=== PATIENT | male | born 1955 | race Caucasian/White ===

== ENCOUNTER 2019-09-22 17:58 | Emergency (ER) | payer BC ==
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
--- NOTE | 2019-09-22 19:34 | RAD REPORT ---
EXAM DESCRIPTION: US - Extremity Venous Uni Ltd - 09/22/2019 7:28 pm CLINICAL HISTORY: SWELLING Leg swelling and edema. COMPARISON: No comparisons FINDINGS: Right lower extremity venous system was interrogated with Doppler technique. Normal flow, compressibility and augmentation was noted. There is no DVT present. IMPRESSION: No evidence of right lower extremity deep venous thrombosis.
--- NOTE | 2019-09-22 19:51 | ER ---
Nurse's Notes [facility] Name: Greg Scott Age: 64 yrs Sex: Male : 1955 Arrival Date: 09/22/2019 Time: 18:01 Bed 14 Private MD: Jessica Diaz Diagnosis: Right Lower Extremity Edema Presentation: 09/21 18:12 Chief complaint: Patient states: Swelling on R knee, up to R inner thigh. Noticed ca1 today. Denies pain. Coronavirus screen: Patient denies a cough. Patient denies shortness of breath or difficulty breathing. Patient denies measured and/or subjective temperature greater than 100.4F prior to today's visit. Patient denies travel on a cruise ship or to a country the [facility] currently lists as an affected area. Patient denies contact with known and/or suspected case of COVID-19. Proceed with normal triage. Ebola Screen: Patient negative for fever greater than or equal to 101.5 degrees Fahrenheit, and additional compatible Ebola Virus Disease symptoms Patient denies exposure to infectious person. Patient denies travel to an Ebola-affected area in the 21 days before illness onset. No symptoms or risks identified at this time. Initial Sepsis Screen: Does the patient meet any 2 criteria? No. Patient's initial sepsis screen is negative. Does the patient have a suspected source of infection? No. Patient's initial sepsis screen is negative. Risk Assessment: Do you want to hurt yourself or someone else? Patient reports no desire to harm self or others. Onset of symptoms was September 22, 2019. 18:12 Method Of Arrival: Ambulatory ca1 18:12 Acuity: MIGDALIA 4 ca1 Triage Assessment: 18:24 General: Appears in no apparent distress. well groomed, Behavior is calm, cooperative, ks7 appropriate for age. Pain: Complains of pain in right knee Pain currently is 5 out of 10 on a pain scale. Quality of pain is described as aching, dull, Pain began 1 day ago. Historical: - Allergies: 18:14 Sulfa (Sulfonamide Antibiotics); ca1 - PMHx: 18:14 Hypertension; CAD; Synovial Cyst on L5; ca1 - PSHx: 18:14 None; ca1 - Immunization history:: Adult Immunizations up to date. - Social history:: Smoking status: Patient denies any tobacco usage or history of. Screenin:26 Abuse screen: Denies threats or abuse. Denies injuries from another. Nutritional ks7 screening: No deficits noted. Tuberculosis screening: No symptoms or risk factors identified. Fall Risk No fall in past 12 months (0 pts). Secondary diagnosis (15 points) No IV (0 pts). Ambulatory Aid- Crutches/Cane/Walker (15 pts). Gait- Weak (10 pts.). Mental Status- Oriented to own ability (0 pts). Total Ingram Fall Scale indicates Low Risk Score (25-44 pts). Side Rails Up X 2 Placed close to Nursing Station As available Patient and Family Educated on Fall Prevention Program and strategies. 18:26 Fall Risk. ks7 Assessment: 18:26 General: pt c/o swelling to R knee. pt states he was standing for an hour on Saturday and ks7 may have tweaked his knee. 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 also states his R foot keeps externally rotating when he tries to take a step with R leg. 18:26 Musculoskeletal: Swelling present in right leg. ks7 19:25 Reassessment: Patient is alert, oriented x 3, equal unlabored respirations, skin ks7 warm/dry/pink. Vital Signs: 18:12 BP 175 / 77; Pulse 86; Resp 15 S; Temp 97.8(TE); Pulse Ox 98% on R/A; Weight 74.84 kg ca1 (R); Height 5 ft. 9 in. (175.26 cm) (R); 18:25 BP 175 / 77; Pulse 81; Resp 16; Pulse Ox 100% on R/A; Pain 5/10; ks7 19:24 BP 149 / 72; Pulse 80; Resp 18; Temp 97.9(TE); Pulse Ox 100% on R/A; Pain 0/10; ks7 20:10 BP 140 / 73; Pulse 89; Resp 18; Temp 98(TE); Pulse Ox 100% ; Pain 0/10; ks7 18:12 Body Mass Index 24.37 (74.84 kg, 175.26 cm) ca1 ED Course: 18:01 Patient arrived in ED. mr 18:02 Jessica Diaz MD is Private Physician. mr 18:13 Triage completed. ca1 18:14 Arm band placed on right wrist. ca1 18:18 Pola Aguilar PA is PHCP. [facility] 18:18 Jimy Strauss MD is Attending Physician. [facility] 18:20 Cary Griffith, GLORIA is Primary Nurse. ks7 18:26 Patient has correct armband on for positive identification. Bed in low position. Call ks7 light in reach. Side rails up X2. 18:26 No provider procedures requiring assistance completed. Patient did not have IV access ks7 during this emergency room visit. 19:22 Patient taken to ultrasound. US at bedside. ks7 19:22 US Extremity Venous Unilateral Ltd Sent. ks7 19:25 No apparent distress. pt ambulated to bathroom and back independently, using his ks7 crutches. 19:28 US Extremity Venous Unilateral Ltd In Process Unspecified. EDMS 19:50 Jessica Diaz MD is Referral Physician. [facility] Administered Medications: No medications were administered Outcome: 19:51 Discharge ordered by MD. jmm 20:14 Discharged to home ambulatory, with crutches. ks7 20:14 Condition: good 20:14 Discharge instructions given to patient, Instructed on discharge instructions. 20:15 Patient left the ED. ks7 Signatures: Dispatcher [employer] EDMS Pola Aguilar PA PA [facility] Mihaela Babcock mr HarrisonLynda melgar RN RN ca1 Cary Griffith, GLORIA RN ks7 Corrections: (The following items were deleted from the chart) 18:13 18:12 Acuity: MIGDALIA 3 ca1 ca1 18:30 18:26 Fall Risk No fall in past 12 months (0 pts). Secondary diagnosis (15 points) No ks7 IV (0 pts). Ambulatory Aid- Crutches/Cane/Walker (15 pts). Gait- Weak (10 pts.). Mental Status- Oriented to own ability (0 pts). Total Ingram Fall Scale indicates Low Risk Score (25-44 pts). ks7
--- NOTE | 2019-09-22 19:52 | EDPHYS ---
Physician Documentation [facility] Name: Greg Scott Age: 64 yrs Sex: Male : 1955 Arrival Date: 09/22/2019 Time: 18:01 Bed 14 Private MD: Jessica Diaz ED Physician Jimy Strauss HPI: 09/21 19:47 This 64 yrs old Male presents to ER via Ambulatory with complaints of Leg jmm Swelling. 19:47 The patient presents with swelling. The complaints affect the right quadriceps. Onset: jmm The symptoms/episode began/occurred gradually, 1 day(s) ago. Modifying factors: The symptoms are alleviated by nothing. the symptoms are aggravated by nothing. Associated signs and symptoms: Pertinent negatives fever. This is a 64 year old male with a history of htn, CAD, that presents to the ED with complaints of right thigh swelling beginning approx 1 day ago extending to the superior end of his knee. Denies fever, denies chest pain, denies shortness of breath. . Historical: - Allergies: 18:14 Sulfa (Sulfonamide Antibiotics); ca1 - PMHx: 18:14 Hypertension; CAD; Synovial Cyst on L5; ca1 - PSHx: 18:14 None; ca1 - Immunization history:: Adult Immunizations up to date. - Social history:: Smoking status: Patient denies any tobacco usage or history of. ROS: 19:47 Constitutional: Negative for fever, chills, and weight loss, Cardiovascular: Negative jmm for chest pain, palpitations, and edema, Respiratory: Negative for shortness of breath, cough, wheezing, and pleuritic chest pain, Abdomen/GI: Negative for abdominal pain, nausea, vomiting, diarrhea, and constipation. 19:47 MS/extremity: Positive for swelling. 19:47 All other systems are negative. Exam: 19:47 Constitutional: This is a well developed, well nourished patient who is awake, alert, jmm and in no acute distress. Head/Face: atraumatic. Eyes: EOMI, no conjunctival erythema appreciated ENT: Moist Mucus Membranes Neck: Trachea midline, Supple Chest/axilla: Normal chest wall appearance and motion. Cardiovascular: Regular rate and rhythm. No edema appreciated Respiratory: Normal respirations, no respiratory distress appreciated Abdomen/GI: Non distended, soft Back: Normal ROM Skin: General appearance color normal 19:47 Musculoskeletal/extremity: swelling noted to the right thigh, non tender to palpation, no erythema, compartments are soft, FROM appreciated to the right knee, no pain. 19:47 Skin: Appearance: Color: normal in color. 19:47 Neuro: Orientation: is normal, Mentation: is normal, Memory: is normal. 19:47 Psych: Behavior/mood is pleasant, cooperative. Vital Signs: 18:12 BP 175 / 77; Pulse 86; Resp 15 S; Temp 97.8(TE); Pulse Ox 98% on R/A; Weight 74.84 kg ca1 (R); Height 5 ft. 9 in. (175.26 cm) (R); 18:25 BP 175 / 77; Pulse 81; Resp 16; Pulse Ox 100% on R/A; Pain 5/10; ks7 19:24 BP 149 / 72; Pulse 80; Resp 18; Temp 97.9(TE); Pulse Ox 100% on R/A; Pain 0/10; ks7 20:10 BP 140 / 73; Pulse 89; Resp 18; Temp 98(TE); Pulse Ox 100% ; Pain 0/10; ks7 18:12 Body Mass Index 24.37 (74.84 kg, 175.26 cm) ca1 MDM: 18:32 Patient medically screened. jessica 19:49 Data reviewed: vital signs, nurses notes. Counseling: I had a detailed discussion with jessica the patient and/or guardian regarding: the historical points, exam findings, and any diagnostic results supporting the discharge/admit diagnosis, radiology results, the need for outpatient follow up, to return to the emergency department if symptoms worsen or persist or if there are any questions or concerns that arise at home. ED course: Patient is alert and non toxic in appearance in the ED. No signs of resp distress. US is negative. Patient advised to return to the ED if symptoms worsen. Patient understood and agrees with the plan of care. . 09/21 18:35 Order name: US Extremity Venous Unilateral Ltd; Complete Time: 19:42 jessica Administered Medications: No medications were administered Disposition: 09/22 08:31 Co-signature as Attending Physician, Jimy Strauss MD. rn Disposition: 09/22/19 19:51 Discharged to Home. Impression: Right Lower Extremity Edema. - Condition is Stable. - Discharge Instructions: Peripheral Edema. - Medication Reconciliation Form, Thank You Letter, Antibiotic Education, Prescription Opioid Use form. - Follow up: Jessica Diaz MD; When: 2 - 3 days; Reason: Recheck today's complaints, Continuance of care, Re-evaluation by your physician. Signatures: Dispatcher [employer] EDMS Pola Aguilar PA PA jmm Nieto, Roman, MD MD rn Acob, Lynda RN RN ca1 Cary Griffith RN RN ks7 Corrections: (The following items were deleted from the chart) 09/21 20:15 19:51 09/22/2019 19:51 Discharged to Home. Impression: Right Lower Extremity Edema. ks7 Condition is Stable. Forms are Medication Reconciliation Form, Thank You Letter, Antibiotic Education, Prescription Opioid Use. Follow up: Jessica Diaz; When: 2 - 3 days; Reason: Recheck today's complaints, Continuance of care, Re-evaluation by your physician. jessica
[2019-09-23 11:38] VITALS: O2SAT 100
[2019-09-23 11:41] VITALS: BP 140/73; TEMP 98
== END 2019-09-22 20:15 | disposition home or self-care (01) ==
LOC: ER 17:58
DX: R60.0 Localized edema (principal); I10 Essential (primary) hypertension; Z88.2 Allergy status to sulfonamides
CPT/HCPCS: 93971; 99284

== ENCOUNTER 2020-04-10 21:37 | Observation (INO) | payer BC ==
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
[2020-04-10] MEDS ORDERED: NA CHLORIDE 0.9% 1,000 ML ONE (22:39)
[2020-04-10] MEDS ORDERED: PROMETHAZINE INJ 25 MG/ML AMP ONE (22:56)
[2020-04-10 23:09] LABS: Absolute Lymphocytes (CBC) 1.8 K/uL (0.7-4.9); Basophils % 0.3 % (0-1.3); Hematocrit 34.4 % (39.6-49.0); Lymphocytes % 13.9 % (15.3-44.8); MPV 7.9 fL (7.6-11.3); RBC Red Blood Cell Count 3.81 M/uL (4.33-5.43)
[2020-04-10 23:10] LABS: Protime INR 0.95
[2020-04-10 23:26] LABS: ALT/SGPT 21 U/L (12-78); AST/SGOT 15 U/L (15-37); Albumin 3.6 g/dL (3.4-5.0); Alkaline Phosphatase 81 U/L (45-117); BUN Blood Urea Nitrogen 22 mg/dL (7-18); Bicarbonate 25 mmol/L (21-32); Bilirubin Direct < 0.1 mg/dL (0-0.2); Bilirubin Total 0.2 mg/dL (0.2-1.0); Glucose Level 108 mg/dL (74-106); NT PRO-BNP 47 pg/mL (<125); Potassium 3.8 mmol/L (3.5-5.1); Sodium Level 143 mmol/L (136-145); Troponin (Emerg Dept Use Only) < 0.02 ng/mL (0.0-0.045)
[2020-04-11] MEDS ORDERED: MECLIZINE HCL 12.5 MG TAB ONE (00:41)
[2020-04-11] MEDS ORDERED: DIAZEPAM 10 MG/2 ML INJ SYRINGE ONE ×2 (02:40→03:53)
[2020-04-11 03:30] LABS: Urine Blood NEGATIVE (NEG); Urine Glucose NEGATIVE (NEG); Urine Protein NEGATIVE (NEG); Urine Specific Gravity 1.025 (1.005-1.030); Urine pH 6.5 (5.0-7.0)
--- NOTE | 2020-04-11 04:48 | EDPHYS ---
Physician Documentation [facility] Name: Greg Scott Age: 65 yrs Sex: Male : 1955 Arrival Date: 04/10/2020 Time: 21:52 Bed 14 Private MD: ED Physician Boby Rosenbaum HPI: 04/10 22:20 This 65 yrs old Male presents to ER via Unassigned with complaints of mh7 Dizziness.. 22:21 The patient presents with dizziness, sense of spinning. Onset: The symptoms/episode mh7 began/occurred today, at 19:30. Context: occurred at home, occurred while the patient was sitting, just prior to the episode the patient experienced no apparent symptoms. Modifying factors: The symptoms are alleviated by holding head still, the symptoms are aggravated by movement of head, standing up, changing position. Associated signs and symptoms: Pertinent positives: nausea, vomiting, Pertinent negatives: abdominal pain, agitation, ataxia, blurred vision, chest pain, combativeness, confusion, diaphoresis, focal weakness, head injury, headache, near-syncope, numbness, palpitations, , seizure, shortness of breath, syncope, tingling. Associated signs and symptoms: Pertinent positives: Ringing in left ear. Severity of symptoms: At their worst the symptoms were moderate today, in the emergency department the symptoms are unchanged. Historical: - Allergies: 23:42 Sulfa (Sulfonamide Antibiotics); ll2 - PMHx: 23:42 CAD; Synovial Cyst on L5; Hypertension; ll2 - Immunization history:: Adult Immunizations up to date. - Social history:: Smoking status: unknown. ROS: 22:21 Constitutional: Negative for fever, chills, and weight loss, Eyes: Negative for injury, mh7 pain, redness, and discharge, Neck: Negative for injury, pain, and swelling, Cardiovascular: Negative for chest pain, palpitations, and edema, Respiratory: Negative for shortness of breath, cough, wheezing, and pleuritic chest pain, Back: Negative for injury and pain, : Negative for injury, bleeding, discharge, and swelling, MS/Extremity: Negative for injury and deformity, Skin: Negative for injury, rash, and discoloration, Neuro: Negative for headache, weakness, numbness, tingling, and seizure, Psych: Negative for depression, anxiety, suicide ideation, homicidal ideation, and hallucinations, Allergy/Immunology: Negative for hives, rash, and allergies, Endocrine: Negative for neck swelling, polydipsia, polyuria, polyphagia, and marked weight changes, Hematologic/Lymphatic: Negative for swollen nodes, abnormal bleeding, and unusual bruising. Exam: 22:40 Constitutional: This is a well developed, well nourished patient who is awake, alert, mh7 and in no acute distress. Head/Face: Normocephalic, atraumatic. Eyes: Pupils equal round and reactive to light, extra-ocular motions intact. Lids and lashes normal. Conjunctiva and sclera are non-icteric and not injected. Cornea within normal limits. Periorbital areas with no swelling, redness, or edema. ENT: Nares patent. No nasal discharge, no septal abnormalities noted. Tympanic membranes are normal and external auditory canals are clear. Oropharynx with no redness, swelling, or masses, exudates, or evidence of obstruction, uvula midline. Mucous membranes moist. Neck: Trachea midline, no thyromegaly or masses palpated, and no cervical lymphadenopathy. Supple, full range of motion without nuchal rigidity, or vertebral point tenderness. No Meningismus. Chest/axilla: Normal chest wall appearance and motion. Nontender with no deformity. No lesions are appreciated. Cardiovascular: Regular rate and rhythm with a normal S1 and S2. No gallops, murmurs, or rubs. Normal PMI, no JVD. No pulse deficits. Respiratory: Lungs have equal breath sounds bilaterally, clear to auscultation and percussion. No rales, rhonchi or wheezes noted. No increased work of breathing, no retractions or nasal flaring. Abdomen/GI: Soft, non-tender, with normal bowel sounds. No distension or tympany. No guarding or rebound. No evidence of tenderness throughout. Back: No spinal tenderness. No costovertebral tenderness. Full range of motion. Skin: Warm, dry with normal turgor. Normal color with no rashes, no lesions, and no evidence of cellulitis. MS/ Extremity: Pulses equal, no cyanosis. Neurovascular intact. Full, normal range of motion. Neuro: Awake and alert, GCS 15, oriented to person, place, time, and situation. Cranial nerves II-XII grossly intact. Motor strength 5/5 in all extremities. Sensory grossly intact. Cerebellar exam normal. Normal gait. Psych: Awake, alert, with orientation to person, place and time. Behavior, mood, and affect are within normal limits. Vital Signs: 04/11 00:15 BP 140 / 71; Pulse 62; Resp 17; Pulse Ox 95% ; ds4 01:15 BP 138 / 68; Pulse 58; Resp 16; Pulse Ox 95% on R/A; ll2 02:15 BP 133 / 72; Pulse 61; Resp 15; Pulse Ox 95% on R/A; ll2 03:15 BP 151 / 77; Pulse 69; Resp 16; Pulse Ox 99% on R/A; ll2 04:15 BP 148 / 83; Pulse 60; Resp 18; Pulse Ox 93% on R/A; ll2 04:24 BP 148 / 83 Supine; Pulse 62; ll2 04:24 BP 161 / 84 Sitting; Pulse 57; ll2 MDM: 04:45 Differential diagnosis: cardiac arrhythmia, CVA, generalized weakness, hypovolemia, 7 idiopathic dizziness, near-syncope, syncope, vertigo. Data reviewed: vital signs, nurses notes, lab test result(s), cardiac enzymes, CBC, electrolytes, urinalysis, EKG, radiologic studies, CT scan, plain films. Data interpreted: Pulse oximetry: on room air is 95 %. Interpretation: normal. Counseling: I had a detailed discussion with the patient and/or guardian regarding: the historical points, exam findings, and any diagnostic results supporting the discharge/admit diagnosis, the presence of at least one elevated blood pressure reading (>120/80) during this emergency department visit, lab results, radiology results, the need for further work-up and treatment in the hospital. Response to treatment: the patient's symptoms have mildly improved after treatment. 04:48 Patient medically screened. [facility] 04/10 22:20 Order name: Basic Metabolic Panel [facility] 04/10 22:20 Order name: CBC with Diff [facility] 04/10 22:20 Order name: LFT's [facility] 04/10 22:20 Order name: Magnesium; Complete Time: 00:10 [facility] 04/10 22:20 Order name: NT PRO-BNP; Complete Time: 00:10 [facility] 04/10 22:20 Order name: PT-INR; Complete Time: 00:10 [facility] 04/10 22:20 Order name: Troponin (emerg Dept Use Only); Complete Time: 00:10 [facility] 04/10 22:20 Order name: XRAY Chest (1 view) [facility] 04/10 22:20 Order name: Basic Metabolic Panel; Complete Time: 00:10 [facility] 04/10 22:20 Order name: CBC with Automated Diff; Complete Time: 00:10 [facility] 04/10 22:20 Order name: Liver (Hepatic) Function; Complete Time: 00:10 [facility] 04/11 01:15 Order name: Urine Dipstick--Ancillary (enter results); Complete Time: 04:12 3 04/11 05:12 Order name: COVID-19 : Document "Date of Symptom Onset" if Symptomatic. mg2 04/11 06:47 Order name: SARS-COV-2 RT PCR [facility] 04/10 22:20 Order name: EKG; Complete Time: 22:21 [facility] 04/10 22:20 Order name: Cardiac monitoring; Complete Time: 00:56 [facility] 04/10 22:20 Order name: EKG - Nurse/Tech; Complete Time: 00:56 [facility] 04/10 22:20 Order name: IV Saline Lock; Complete Time: 00:56 [facility] 04/10 22:20 Order name: Labs collected and sent; Complete Time: 00:56 [facility] 04/10 22:20 Order name: O2 Per Protocol; Complete Time: 00:56 [facility] 04/10 22:20 Order name: O2 Sat Monitoring; Complete Time: 00:56 [facility] 04/10 22:20 Order name: CT Head Brain wo Cont [facility] 04/11 12:42 Order name: MRI [facility] 04/11 12:44 Order name: MRI [facility] 04/10 22:20 Order name: Urine Dipstick-Ancillary (obtain specimen); Complete Time: 00:47 [facility] Administered Medications: 04/10 22:25 Drug: NS 0.9% 1000 ml Route: IV; Rate: 1000 ml; Site: left antecubital; 2 23:58 Follow up: Response: No adverse reaction; IV Status: Completed infusion; IV Intake: ll2 1000ml 22:55 Drug: Phenergan 12.5 mg Route: IVP; Site: left antecubital; 2 23:55 Follow up: Response: No adverse reaction [facility] 04/11 00:29 Drug: Meclizine 25 mg Route: PO; ll2 01:29 Follow up: Response: No adverse reaction ll2 02:38 Drug: Valium 2.5 mg Route: IVP; Site: left antecubital; ll2 03:38 Follow up: Response: No adverse reaction ll2 03:47 Drug: Valium 2.5 mg Route: IVP; Site: left antecubital; ll2 04:25 Follow up: Response: No adverse reaction ll2 05:36 Drug: predniSONE 60 mg Route: PO; ll2 Disposition: 04/11/20 04:48 Hospitalization ordered by Abdon Strauss for Observation. Preliminary diagnosis is Vertigo. - Bed requested for Telemetry/MedSurg (observation). - Status is Observation. ll1 - Condition is Stable. - Problem is new. - Symptoms have improved. Signatures: Dispatcher [employer] EDMS Manolo Kelly, SECURITY RISK ANALYST-C SECURITY RISK ANALYST-Cla1 Elza Rocha RN RN Ramsey Owens RN RN [email or web address] Melonie Mitchell RN RN ll2 Jason Albarado RN RN 1 Boby Rosenbaum MD MD 7 Corrections: (The following items were deleted from the chart) 05:56 04:48 Hospitalization Ordered by Abdon Strauss MD for Observation. Preliminary cg diagnosis is Vertigo. Bed requested for Telemetry/MedSurg (observation). Status is Observation. Condition is Stable. Problem is new. Symptoms have improved. [facility] 16:03 05:56 04/11/2020 04:48 Hospitalization Ordered by Abdon Strauss MD for Observation. ja1 Preliminary diagnosis is Vertigo. Bed requested for [facility] ER HOLD. Status is Observation. Condition is Stable. Problem is new. Symptoms have improved. cg 16:36 16:03 04/11/2020 04:48 Hospitalization Ordered by Abdon Strauss MD for Observation. ll1 Preliminary diagnosis is Vertigo. Bed requested for Telemetry/MedSurg (observation). Status is Observation. Condition is Stable. Problem is new. Symptoms have improved. ja1
--- NOTE | 2020-04-11 04:48 | ER ---
Nurse's Notes [facility] Name: Greg Scott Age: 65 yrs Sex: Male : 1955 Arrival Date: 04/10/2020 Time: 21:52 Bed 14 Private MD: Diagnosis: Vertigo Presentation: 04/10 21:55 Acuity: MIGDALIA 3 ll2 21:55 Chief complaint:. ll2 04/11 04:26 Coronavirus screen: Client denies travel out of the [place] in the last 14 days. Ebola ll2 Screen: Patient negative for fever greater than or equal to 101.5 degrees Fahrenheit, and additional compatible Ebola Virus Disease symptoms. Initial Sepsis Screen: Does the patient meet any 2 criteria? No. Patient's initial sepsis screen is negative. Does the patient have a suspected source of infection? No. Patient's initial sepsis screen is negative. Risk Assessment: Do you want to hurt yourself or someone else? Patient reports no desire to harm self or others. Onset of symptoms. 04:26 Method Of Arrival: Ambulatory ll2 Triage Assessment: 04:26 General: Appears in no apparent distress. Behavior is calm, cooperative, appropriate ll2 for age. Pain: Denies pain. Historical: - Allergies: 04/10 23:42 Sulfa (Sulfonamide Antibiotics); ll2 - PMHx: 23:42 CAD; Synovial Cyst on L5; Hypertension; ll2 - Immunization history:: Adult Immunizations up to date. - Social history:: Smoking status: unknown. Screenin:00 Abuse screen: Denies threats or abuse. Nutritional screening: No deficits noted. ll2 Tuberculosis screening: No symptoms or risk factors identified. Fall Risk No fall in past 12 months (0 pts). IV access (20 points). Ambulatory Aid- None/Bed Rest/Nurse Assist (0 pts). Gait- Normal/Bed Rest/Wheelchair (0 pts) Mental Status- Oriented to own ability (0 pts). Total Ingram Fall Scale indicates No Risk (0-24 pts). Assessment: 21:55 General: Appears in no apparent distress. Behavior is calm, cooperative, appropriate ll2 for age. Pain: Denies pain. Neuro: Level of Consciousness is awake, alert, obeys commands, Oriented to person, place, time, situation. Cardiovascular: Patient's skin is warm and dry. Respiratory: Airway is patent Respiratory effort is even, unlabored, Respiratory pattern is regular, symmetrical. GI: No signs and/or symptoms were reported involving the gastrointestinal system. : No signs and/or symptoms were reported regarding the genitourinary system. EENT: No signs and/or symptoms were reported regarding the EENT system. Derm: No signs and/or symptoms reported regarding the dermatologic system. Musculoskeletal: Circulation, motion, and sensation intact. Range of motion: intact in all extremities. 22:55 Reassessment: Patient and/or family updated on plan of care and expected duration. Pain ll2 level reassessed. Patient is alert, oriented x 3, equal unlabored respirations, skin warm/dry/pink. 23:55 Reassessment: Patient and/or family updated on plan of care and expected duration. Pain ll2 level reassessed. Patient is alert, oriented x 3, equal unlabored respirations, skin warm/dry/pink. 04/11 00:55 Reassessment: Patient and/or family updated on plan of care and expected duration. Pain ll2 level reassessed. Patient is alert, oriented x 3, equal unlabored respirations, skin warm/dry/pink. 01:55 Reassessment: No changes from previously documented assessment. Patient and/or family ll2 updated on plan of care and expected duration. Pain level reassessed. Patient is alert, oriented x 3, equal unlabored respirations, skin warm/dry/pink. 02:55 Reassessment: Patient and/or family updated on plan of care and expected duration. Pain ll2 level reassessed. Patient is alert, oriented x 3, equal unlabored respirations, skin warm/dry/pink. 03:55 Reassessment: No changes from previously documented assessment. Patient and/or family ll2 updated on plan of care and expected duration. Pain level reassessed. Patient is alert, oriented x 3, equal unlabored respirations, skin warm/dry/pink. 04:28 Pain: Pain does not radiate. Pain began suddenly. ll2 Vital Signs: 00:15 BP 140 / 71; Pulse 62; Resp 17; Pulse Ox 95% ; ds4 01:15 BP 138 / 68; Pulse 58; Resp 16; Pulse Ox 95% on R/A; ll2 02:15 BP 133 / 72; Pulse 61; Resp 15; Pulse Ox 95% on R/A; ll2 03:15 BP 151 / 77; Pulse 69; Resp 16; Pulse Ox 99% on R/A; ll2 04:15 BP 148 / 83; Pulse 60; Resp 18; Pulse Ox 93% on R/A; ll2 04:24 BP 148 / 83 Supine; Pulse 62; ll2 04:24 BP 161 / 84 Sitting; Pulse 57; ll2 ED Course: 04/10 21:52 Patient arrived in ED. lp1 21:54 Boby Rosenbaum MD is Attending Physician. 7 22:00 No provider procedures requiring assistance completed. ll2 22:00 Patient has correct armband on for positive identification. color television console monitor on. Pulse ll2 ox on. NIBP on. 22:32 Melonie Mitchell RN is Primary Nurse. ll2 22:58 XRAY Chest (1 view) In Process Unspecified. EDMS 23:28 CT Head Brain wo Cont In Process Unspecified. EDMS 23:33 Triage completed. 2 04/11 02:51 CBC with Diff Sent. ll2 02:51 LFT's Sent. ll2 02:51 Basic Metabolic Panel Sent. ll2 04:26 Arm band placed on right wrist. ll2 04:28 Patient maintains SpO2 saturation greater than 95% on room air. 2 04:47 Abdon Strauss MD is Hospitalizing Provider. [facility] 05:32 COVID-19 : Document "Date of Symptom Onset" if Symptomatic. Sent. ll2 Administered Medications: 04/10 22:25 Drug: NS 0.9% 1000 ml Route: IV; Rate: 1000 ml; Site: left antecubital; 2 23:58 Follow up: Response: No adverse reaction; IV Status: Completed infusion; IV Intake: ll2 1000ml 22:55 Drug: Phenergan 12.5 mg Route: IVP; Site: left antecubital; 2 23:55 Follow up: Response: No adverse reaction 2 04/11 00:29 Drug: Meclizine 25 mg Route: PO; ll2 01:29 Follow up: Response: No adverse reaction ll2 02:38 Drug: Valium 2.5 mg Route: IVP; Site: left antecubital; 2 03:38 Follow up: Response: No adverse reaction 2 03:47 Drug: Valium 2.5 mg Route: IVP; Site: left antecubital; 2 04:25 Follow up: Response: No adverse reaction 2 05:36 Drug: predniSONE 60 mg Route: PO; 2 Intake: 04/10 23:58 IV: 1000ml; Total: 1000ml. 2 Outcome: 04/11 04:48 Decision to Hospitalize by Provider. [facility] 16:36 Patient left the ED. [facility] Signatures: Dispatcher [employer] EDMS Luna Thapa RN RN lp1 Eleazar Huerta ds4 Melonie Mitchell RN RN ll2 Jason Albarado RN RN ll1 Boby Rosenbaum MD MD 7
--- NOTE | 2020-04-11 05:30 | P.HP ---
Certification for Inpatient Patient admitted to: Observation With expected LOS: <2 Midnights Patient will require the following post-hospital care: None Practitioner: I am a practitioner with admitting privileges, knowledge of patient current condition, hospital course, and medical plan of care. Services: Services provided to patient in accordance with Admission requirements found in Title 42 Section 412.3 of the Code of Federal Regulations <Manolo Kelly - Last Filed: 04/11/20 05:26> Patient History Date of Service: 04/11/20 Primary Care Provider: Dr. Diaz Reason for admission: Dizziness, vomiting History of Present Illness: 65-year-old male with history of hypertension presents emergency department for dizziness. Patient reports that beginning in the afternoon yesterday he began having some episodic dizziness related to position change. Patient reports vertigo symptoms. Patient was given meclizine, Valium in the emergency department with only mild symptom relief. CT head negative for any acute findings lab significant for white blood cell count 13 hemoglobin 11.4 hematocrit 34.4. After a more detailed discussion with patient he also revealed that he has had new left-sided hearing loss and sensation of fullness to the left ear as well. Patient left beating nystagmus, dizziness made worse by turning head to the left. Patient with surgery approximately 6-7 months ago with the neurosurgeon to remove a cyst from his spine, since then he has used crutches for walking. Patient still with significant dizziness, vomiting with any position change, ED provider wishes to admit under observation for further evaluation and management, patient also does not feel comfortable going home given high risk for falls and still feeling very well. Patient without any other focal neurological deficits. Appears stable at this time. - Past Medical/Surgical History Diabetic: No -: Hypertension -: Spinal cyst removal Psychosocial/ Personal History: Patient currently employed, has a desk job, lives with his . - Family History Family History: Reviewed- Non-Contributory - Social History Alcohol use: No CD- Drugs: No Caffeine use: Yes <Manolo Kelly - Last Filed: 04/11/20 05:26> Date of Service: 04/11/20 <Abdon Strauss - Last Filed: 04/11/20 18:54> Review of Systems General: As per HPI Gastrointestinal: Vomiting Neurological: Other (Dizziness) <Manolo Kelly - Last Filed: 04/11/20 05:26> Physical Examination - Physical Exam General: Alert, In no apparent distress HEENT: Atraumatic, PERRLA, Mucous membr. moist/pink, Other (Patient with left beating nystagmus), Sclerae nonicteric Neck: Supple, 2+ carotid pulse no bruit, No LAD, Without JVD or thyroid abnormality Respiratory: Clear to auscultation bilaterally, Normal air movement Cardiovascular: Regular rate/rhythm, Normal S1 S2 Gastrointestinal: Normal bowel sounds, No tenderness Musculoskeletal: No tenderness Integumentary: No rashes Neurological: Normal speech, Normal strength at 5/5 x4 extr (Patient unable to fully cooperate with muscle strength testing of right lower extremity due to spinal surgery and pain.), Normal tone, Sensation intact, Normal affect, Other (Left beating nystagmus, vertigo with repositioning of head facing left.) Lymphatics: No axilla or inguinal lymphadenopathy - Studies Laboratory Data (last 24 hrs) 04/10/20 22:50: PT 10.9, INR 0.95 04/10/20 22:50: WBC 13.00 H, Hgb 11.4 L, Hct 34.4 L, Plt Count 243 04/10/20 22:50: Sodium 143, Potassium 3.8, BUN 22 H, Creatinine 1.01, Glucose 1 08 H, Magnesium 2.0, Total Bilirubin 0.2, AST 15, ALT 21, Alkaline Phosphatase 81 <Manolo Kelly - Last Filed: 04/11/20 05:26> - Studies Laboratory Data (last 24 hrs) 04/10/20 22:50: PT 10.9, INR 0.95 04/10/20 22:50: WBC 13.00 H, Hgb 11.4 L, Hct 34.4 L, Plt Count 243 04/10/20 22:50: Sodium 143, Potassium 3.8, BUN 22 H, Creatinine 1.01, Glucose 108 H, Magnesium 2.0, Total Bilirubin 0.2, AST 15, ALT 21, Alkaline Phosphatase 81 <Abdon Strauss - Last Filed: 04/11/20 18:54> Assessment and Plan - Plan Assessment Dizziness, vomiting Hypertension Plan Dizziness, vomiting: Patient with symptoms reproducible with repositioning of the head facing left, left beating nystagmus, sensation of fullness in the left year in addition to new onset of hearing loss in the past 24 hr on the left year. Suspect Meniere's disease. Patient given benzodiazepines and meclizine in the emergency department with minor relief. Patient uses crutches at home due to recent spinal surgery approximately 6-7 months ago. Will need to have patient evaluated by physical therapy and in control of dizziness/vertigo so that he may be safe for discharge. DVT prophylaxis Lovenox 40 mg subcutaneous once daily. Hypertension: Continue home meds. Discharge Plan: Home Plan to discharge in: 24 Hours - Advance Directives Does patient have a Living Will: No Does patient have a Durable POA for Healthcare: No - Code Status/Comfort Care Code Status Assessed: Yes (Full code) Critical Care: No Time Spent Managing Pts Care (In Minutes): 55 <Manolo Kelly - Last Filed: 04/11/20 05:26> - Plan Plan of care discussed with Manolo Kelly, and I agree with the management plan as noted above. Bilateral tympanic membranes appeared clear/normal, no evidence of infection Will obtain MRI to rule out brain stem stroke Patient is quite symptomatic, will consult PT as well anticipate dc in next 24 hrs <Abdon Strauss - Last Filed: 04/11/20 18:54>
[2020-04-11] MEDS ORDERED: predniSONE 20 MG TAB ONE ×2 (05:49→08:34)
[2020-04-11] MEDS ORDERED: clonazePAM 0.5 MG TAB PO PRN (06:13)
[2020-04-11] MEDS ORDERED: ACETAMINOPHEN 500 MG TAB PO PRN (06:13)
[2020-04-11] MEDS ORDERED: ONDANSETRON 4 MG/2 ML VIAL IV PRN (06:13)
[2020-04-11] MEDS ORDERED: PROMETHAZINE INJ 25 MG/ML AMP IV PRN (06:13)
[2020-04-11 06:16] VITALS: BMI 25.8
--- NOTE | 2020-04-11 08:25 | RAD REPORT ---
EXAM DESCRIPTION: RAD - Chest Single View - 04/10/2020 10:58 pm CLINICAL HISTORY: Dizziness Chest pain. COMPARISON: CHEST PA AND LAT 2 VIEW dated 07/31/2013 FINDINGS: Portable technique limits examination quality. The lungs are grossly clear. The heart is normal in size. No displaced fractures. IMPRESSION: No acute intrathoracic process suspected.
[2020-04-11] MEDS ORDERED: ENOXAPARIN 40 MG/0.4 ML SQ ONE (08:34)
[2020-04-11] MEDS: FUROSEMIDE 20 MG TABLET PO SCH (09:00)
[2020-04-11] MEDS ORDERED: PNEUMOCOCCAL VACCINE 0.5 ML IMVAC ONE (09:00)
[2020-04-11] MEDS ORDERED: INFLUENZA VACCINE (for 3y+) 0.5 ML DOSE IMVAC ONE (09:00)
[2020-04-11] MEDS: IRBESARTAN 150 MG TAB PO SCH ×2 (09:00)
[2020-04-11] MEDS: ASPIRIN EC 81 MG TAB PO SCH (09:00)
[2020-04-11] MEDS: METOPROLOL TAR 50 MG TAB PO SCH ×2 (09:00→20:32)
[2020-04-11] MEDS: ENOXAPARIN 40 MG/0.4 ML SQ SCH (09:00)
[2020-04-11] MEDS ORDERED: FUROSEMIDE 20 MG TABLET ONE (09:13)
[2020-04-11] MEDS ORDERED: ASPIRIN EC 81 MG TAB PO ONE (09:13)
[2020-04-11] MEDS ORDERED: METOPROLOL TAR 50 MG TAB ONE (09:13)
--- NOTE | 2020-04-11 12:04 | RAD REPORT ---
EXAM DESCRIPTION: CT HEAD WITHOUT IV CONTRAST on 04/10/2020 10:20 PM [employer]ET [employer] WORKER SUPERVISOR CLINICAL HISTORY: DIZZINESS COMPARISON: None. TECHNIQUE: CT HEAD WITHOUT IV CONTRAST on 04/10/2020 10:20 PM [employer] SUPERVISOR This exam was performed according to our departmental dose-optimization program, which includes autom ated exposure control, adjustment of the mA and/or kV according to patient size and/or use of iterati ve reconstruction technique. FINDINGS: There is no acute hemorrhage, mass effect or midline shift. Velázquez-white differentiation is preserved. There is no hydrocephalus. There is no significant volume loss for age. The calvarium is intact. Orbits and globes are unremarkable. The paranasal sinuses are clear. Mastoid air cells are clear. IMPRESSION: No acute intracranial findings. Electronically signed by: Nura Landry MD 04/10/2020 11:32 PM [employer] SUPERVISOR Due to temporary technical issues with the PACS/Fluency reporting system, reports are being signed by the in house radiologist without review as a courtesy to ensure prompt reporting. The interpreting r adiologist is fully responsible for the content of the report.
--- NOTE | 2020-04-11 12:41 | RAD REPORT ---
EXAM DESCRIPTION: MRI - Brain Wo Cont - 04/11/2020 12:30 pm CLINICAL HISTORY: VERTIGO,NYSTAGMUS, L DECREASED HEARING COMPARISON: MRA Head Wo Cont dated 04/11/2020; Head Brain Wo Cont dated 04/10/2020 TECHNIQUE: Sagittal T1-weighted images were obtained along with axial PD, heavily T2-weighted and T2 -FLAIR images. Axial DWI and ADC mapping sequences were also obtained along with coronal heavily T2-w eighted images. FINDINGS: No intracranial hemorrhage, mass or acute infarction. There is no edema or shift of midlin e structures. No extra-axial fluid collections. Velázquez-matter/white matter junction is preserved. Signa l voids are seen as a normal finding in the major intracranial vessels. No atrophy and only trace jimmy unts of chronic ischemic change in the cerebral white matter. No brainstem signal abnormality. No globe or orbital content abnormality. Mastoid air cells and paranasal sinuses are clear. IMPRESSION: No acute infarction. No acute intracranial finding. No measurable atrophy. Only trace chronic ischemic change in the cerebral white matter.
--- NOTE | 2020-04-11 12:44 | RAD REPORT ---
EXAM DESCRIPTION: MRI - MRA Head Wo Cont - 04/11/2020 12:16 pm CLINICAL HISTORY: Dizziness, stroke-like symptoms, vertigo, nystagmus and left-sided decreased heari ng COMPARISON: None. TECHNIQUE: Axial and coronal 3D [id number]-[id number] image acquisition was performed. 3D rotational images were generated with source and reconstruction images reviewed. Horizontal and vertical axis rotation al views generated using MIP protocol. FINDINGS: No aneurysm or vascular malformation identified. No vasculitis or diffuse vascular process seen. Atherosclerotic changes are minimal with no named branch occlusion. Distal internal carotid ar teries and basilar artery show no suspicious findings. IMPRESSION: MRA head examination showing no significant or suspicious finding.
[2020-04-11] MEDS ORDERED: ONDANSETRON 4 MG/2 ML VIAL ONE (13:18)
[2020-04-11] MEDS ORDERED: clonazePAM 0.5 MG TAB ONE (13:21)
[2020-04-11 16:46] VITALS: O2SAT 93
[2020-04-11] MEDS ORDERED: IRBESARTAN 150 MG TAB PO SCH (21:00)
[2020-04-12 05:42] LABS: Absolute Lymphocytes (CBC) 2.7 K/uL (0.7-4.9); Basophils % 0.3 % (0-1.3); Lymphocytes % 23.4 % (15.3-44.8); MPV 7.9 fL (7.6-11.3); RBC Red Blood Cell Count 3.88 M/uL (4.33-5.43)
[2020-04-12 06:03] LABS: BUN Blood Urea Nitrogen 15 mg/dL (7-18); Bicarbonate 29 mmol/L (21-32); Glucose Level 91 mg/dL (74-106); Magnesium 2.1 mg/dL (1.8-2.4); Potassium 3.8 mmol/L (3.5-5.1); Sodium Level 144 mmol/L (136-145)
[2020-04-12] MEDS ORDERED: predniSONE 20 MG TAB PO SCH (09:00)
[2020-04-12] MEDS: ENOXAPARIN 40 MG/0.4 ML SQ SCH (09:02)
[2020-04-12] MEDS: ASPIRIN EC 81 MG TAB PO SCH (09:03)
[2020-04-12] MEDS: FUROSEMIDE 20 MG TABLET PO SCH (09:03)
[2020-04-12] MEDS: METOPROLOL TAR 50 MG TAB PO SCH (09:03)
--- NOTE | 2020-04-12 11:44 | P.DS ---
Admission Date: 04/11/20 Discharge Date: 04/12/20 Primary Care Provider: Dr. Diaz Disposition: ROUTINE DISCHARGE Discharge Condition: FAIR Reason for Admission: Dizziness, vomiting - Problems (1) Vertigo Status: Acute (2) BPV (benign positional vertigo) Status: Acute (3) Hypertension Status: Acute Brief History of Present Illness: 65-year-old gentleman with a history of hypertension, history of spinal surgery, now clutches depending presented to the emergency department with a complaint of dizziness, and positional vertigo. He was given meclizine in the ED with only mild improvement in her symptoms. Images done in the ED did not show any acute disease. Patient was placed under observation for further evaluation. Hospital Course: Patient placed under observation in telemetry. He continued to experience dizziness with changes in head position, especially when he lifts his head up. MRI of the brain did not show any acute disease. MRA of the head and neck did not show any significant arterial stenosis. Patient was seen by physical therapy recommended outpatient vestibular rehabilitation. Patient evaluated by neurology who recommend to continue rehab. Patient is prescribed Klonopin for symptom management of his vertigo. Vital Signs/Physical Exam: Temp Pulse Resp BP Pulse Ox 97.6 F 66 17 135/72 95 04/12/20 08:00 04/12/20 09:03 04/12/20 08:00 04/12/20 09:03 04/12/20 08:00 General: Alert, In no apparent distress, Oriented x3 HEENT: PERRLA, Mucous membr. moist/pink, EOMI Neck: Supple, JVD not distended Respiratory: Clear to auscultation bilaterally, Normal air movement Cardiovascular: No edema, Regular rate/rhythm, Normal S1 S2 Capillary refill: <2 Seconds Gastrointestinal: Normal bowel sounds, Soft and benign, Non-distended Musculoskeletal: No swelling, No erythema Integumentary: No rashes, No erythema Neurological: Normal speech, Normal strength at 5/5 x4 extr, Abnormal gait Laboratory Data at Discharge: WBC 11.40 K/uL (4.3-10.9) H 04/12/20 05:13 Hgb 11.6 g/dL (13.6-17.9) L 04/12/20 05:13 Hct 35.0 % (39.6-49.0) L 04/12/20 05:13 Plt Count 241 K/uL (152-406) 04/12/20 05:13 PT 10.9 SECONDS (9.5-12.5) 04/10/20 22:50 INR 0.95 04/10/20 22:50 Sodium 144 mmol/L (136-145) 04/12/20 05:13 Potassium 3.8 mmol/L (3.5-5.1) 04/12/20 05:13 BUN 15 mg/dL (7-18) 04/12/20 05:13 Creatinine 0.76 mg/dL (0.55-1.3) 04/12/20 05:13 Glucose 91 mg/dL (74-106) 04/12/20 05:13 Magnesium 2.1 mg/dL (1.8-2.4) 04/12/20 05:13 Total Bilirubin 0.2 mg/dL (0.2-1.0) 04/10/20 22:50 AST 15 U/L (15-37) 04/10/20 22:50 ALT 21 U/L (12-78) 04/10/20 22:50 Alkaline Phosphatase 81 U/L (45-117) 04/10/20 22:50 Home Medications: Aspirin Chewable [Aspirin Chewable*] 81 mg PO DAILY 04/11/20 Difluprednate [Durezol] 1 drop RIGHT EYE QID 04/11/20 Dorzolamide HCl/Timolol Maleat [Dorzolamide-Timolol Eye Drops] 1 drop LEFT EYE BID 04/11/20 Metoprolol Tartrate 100 mg PO BID 04/11/20 Travoprost (Benzalkonium) [Travatan 0.004% Eye Drop] 1 drop EACH EYE DAILY 04/11/20 Valsartan 160 mg PO DAILY 04/11/20 clonazePAM [Klonopin] 0.25 mg PO TID PRN #30 tablet 04/12/20 predniSONE [Prednisone*] 60 mg PO DAILY #30 tab 04/12/20 New Medications: clonazePAM [Klonopin] 0.25 mg PO TID PRN #30 tablet PRN Reason: Dizziness predniSONE [Prednisone*] 60 mg PO DAILY #30 tab Diet: AHA Activity: Ad zenaida Followup: Unknown,U [Primary Care Provider] - 1-2 Weeks Kong Lanrdy MD [ASSOCIATE-ACTIVE - CAN ADMIT] - 1-2 Weeks
[2020-04-12 17:43] VITALS: BP 147/76; TEMP 97.6
== END 2020-04-12 17:06 | disposition home or self-care (01) ==
LOC: ER 21:37 → ERHOLD 04-11 05:33 → 2ND 04-11 16:24
PROVIDERS: ADMIT Hospitalist; ATTEND Internal Medicine
DX: H81.10 Benign paroxysmal vertigo, unspecified ear (principal); I10 Essential (primary) hypertension; I25.10 Atherosclerotic heart disease of native coronary artery without angina pectoris; Z98.890 Other specified postprocedural states; Z88.2 Allergy status to sulfonamides; Z20.822 Contact with and (suspected) exposure to COVID-19
CPT/HCPCS: 96361; 93005; 85025 ×2; 80048 ×2; 36415 ×2; 83735 ×2; 85610; 80076; 81003; 84484; 83880; 70450; 71045; 70551; 70544; 97116 ×2; 97161; 97530; 96375; 96374; 99285; U0003; J2550; J1650 ×2; J3360 ×2; J7030; J2405; G0378 ×4; J7512

== ENCOUNTER 2021-09-22 07:05 | Day surgery (SDC) | payer OTHER ==
[2021-09-21 10:59] LABS: Absolute Lymphocytes (CBC) 1.9 K/uL (0.7-4.9); Hematocrit 39.4 % (39.6-49.0); Lymphocytes % 22.9 % (15.3-44.8); MCV 88.8 fL (80-100); MPV 7.3 fL (7.6-11.3); RBC Red Blood Cell Count 4.43 M/uL (4.33-5.43)
[2021-09-21 11:05] LABS: SARS-CoV-2 Antigen Rapid Res Negative (Negative)
[2021-09-21 11:12] LABS: Potassium 4.2 mmol/L (3.5-5.1)
--- NOTE | 2021-09-21 11:19 | RAD REPORT ---
EXAM DESCRIPTION: RAD - Chest Pa And Lat (2 Views) - 09/21/2021 11:00 am CLINICAL HISTORY: pre procedure screening Chest pain. COMPARISON: Chest Single View dated 04/10/2020; CHEST PA AND LAT 2 VIEW dated 07/31/2013 FINDINGS: The lungs are clear. The heart is normal in size. No displaced fractures. IMPRESSION: No acute or concerning finding suspected.
[2021-09-22] MEDS ORDERED: CIPROFLOXACIN 400mg IV 400 MG/200 ML BAG IV ONE (07:38)
[2021-09-22] MEDS ORDERED: Ringers Lactate 1,000 ML IV ONE (07:38)
[2021-09-22 07:52] VITALS: O2SAT 97
[2021-09-22] MEDS ORDERED: LIDOCAINE 2% MPF 5 ML VIAL ONE (08:23)
[2021-09-22] MEDS ORDERED: FENTANYL CITR 100 MCG/2 ML ONE (08:23)
[2021-09-22] MEDS ORDERED: KETOROLAC 30 MG/ML INJ ONE (08:23)
[2021-09-22] MEDS ORDERED: BUPIVACAINE 0.5% PF 10 ML VIAL ONE (08:23)
[2021-09-22] MEDS ORDERED: dexAMETHasone 10 MG/ML VIAL ONE (08:23)
[2021-09-22] MEDS ORDERED: propofoL 200 MG/20 ML VIAL IV ONE (08:23)
[2021-09-22] MEDS ORDERED: ONDANSETRON 4 MG/2 ML VIAL ONE (08:24)
[2021-09-22] MEDS ORDERED: MIDAZOLAM HCL 2 MG/2 ML INJ ONE (08:24)
[2021-09-22] MEDS ORDERED: EPHEDRINE SULF 50 MG/ML VIAL ONE (09:03)
--- NOTE | 2021-09-22 09:39 | P.OP ---
Date of Service: 09/22/21 Preop diagnosis: Left posterior shoulder mass Postop diagnosis: Same Procedure performed: Excision left shoulder mass 4 x 4 cm with layered closure Surgeon: Bryant Dewitt MD Usability Specialist: Sandra BAUMANN Estimated blood loss: Minimal Specimen: Left posterior shoulder mass Findings: Lipoma Anesthesia: MAC Complications: None Drains: None Fluids and blood products: Nonapplicable Disposition: Recovery room Operative note: Patient brought to the OR and placed in the supine position. MAC anesthesia begun. Patient placed in the right lateral position. Patient prepped and draped in the usual sterile fashion. Marcaine 0.5% infiltrated locally for postop pain control. Then 15 blade used to make a 4 cm incision over the mass. Subcutaneous tissue divided. Lipoma identified and excised from the subcutaneous tissue. Mass sent to pathology as specimen. Wound irrigated and bleeding controlled cautery. 2-0 chromic and 3-0 chromic used to reapproximate subcutaneous tissue. 4-0 nylon used to close skin. Sterile dressing applied. Patient tolerated procedure in stable condition taken to recovery room in good general condition. CC: Dr. Diaz's office
[2021-09-22 10:09] VITALS: BP 109/55; TEMP 97.6
== END 2021-09-22 10:20 | disposition home or self-care (01) ==
LOC: OR 07:05
PROVIDERS: ATTEND Surgery
PROC: 0JBF0ZZ Excision of Left Upper Arm Subcutaneous Tissue and Fascia, Open Approach (ICD-10-PCS; principal; 2021-09-22 08:30)
DX: D17.21 Benign lipomatous neoplasm of skin and subcutaneous tissue of right arm (principal); Z20.822 Contact with and (suspected) exposure to COVID-19
CPT/HCPCS: 85025; 80048; 36415; 88304; 71046; 87811; 11406; J2704; J2250; J3010; J1100; J7120; J2405; J0744; 88305

== ENCOUNTER 2022-03-25 22:53 | Emergency (ER) | payer OTHER ==
--- OUTSIDE RECORDS SUMMARY | 2022-03-25 23:00 | XMS REPORT | Continuity of Care Document ---
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 BY MOUTH BY MOUTH TABLET(S) e FOUR TIMES FOUR TIMES BY MOUTH A DAY A DAY FOUR TIMES NEEDED. NEEDED. A DAY NEEDED. metoprolol metoprolol No metoprolol [facility] tartrate 50 tartrate 50 tartrate [facility] mg tablet mg tablet 50 mg dic TAKE TWO TAKE TWO tablet Sport s (2) (2) TAKE TWO Medicin TABLET(S) TABLET(S) (2) e BY MOUTH BY MOUTH TABLET(S) TWICE A DAY TWICE A DAY BY MOUTH WITH FOOD. WITH FOOD. TWICE A DAY WITH FOOD. nitrofurant nitrofurant No nitrofuran [facility] oin oin toin [facility] monohydrate monohydrate monohydrat dic /macrocryst /macrocryst e/macrocry Sports als 100 mg als 100 mg stals 100 Medicin capsule capsule mg capsule e TAKE ONE TAKE ONE TAKE ONE (1) (1) (1) CAPSULE(S) CAPSULE(S) CAPSULE(S) BY MOUTH BY MOUTH BY MOUTH DAILY WITH DAILY WITH DAILY WITH FOOD. FOOD. FOOD. Repatha Repatha No Repatha Amber SureClick SureClick SureClick [facility] 140 mg/mL 140 mg/mL 140 mg/mL dic subcutaneou subcutaneou subcutaneo Sports s pen s pen us pen Medicin injector injector injector e INJECT THE INJECT THE INJECT THE CONTENTS OF CONTENTS OF CONTENTS ONE (1) ONE (1) OF ONE (1) PREFILLED PREFILLED PREFILLED PEN PEN PEN SUBCUTANEOU SUBCUTANEOU SUBCUTANEO SLY EVERY 2 SLY EVERY 2 USLY EVERY WEEKS IN WEEKS IN 2 WEEKS IN THE THE THE ABDOMEN, ABDOMEN, ABDOMEN, THIGH, OR THIGH, OR THIGH, OR OUTER AREA OUTER AREA OUTER AREA OF UPPER OF UPPER OF UPPER ARM (ROTATE ARM (ROTATE ARM SITES). SITES). (ROTATE SITES). tramadol 50 tramadol 50 No tramadol Amber mg tablet mg tablet 50 mg Orth ope TAKE ONE TAKE ONE tablet dic (1) (1) TAKE ONE Sports TABLET(S) TABLET(S) (1) Medic in BY MOUTH BY MOUTH TABLET(S) e EVERY SIX EVERY SIX BY MOUTH HOURS HOURS EVERY SIX NEEDED. NEEDED. HOURS NEEDED. valsartan valsartan No valsartan [facility] 160 mg 160 mg 160 mg [facility] tablet TAKE tablet TAKE tablet dic ONE (1) ONE (1) TAKE ONE Sport s TABLET(S) TABLET(S) (1) Medic in BY MOUTH BY MOUTH TABLET(S) e ONCE A DAY. ONCE A DAY. BY MOUTH ONCE A DAY. Keira Crockett Yes Arnol not [facility] defined [facility] Tobramycin Tobramycin Yes Arnol 3 drops in [facility] affected [facility] eye [facility] Metoprolol Metoprolol Yes Arnol 1 tablet Common Tartrate Tartrate Velez with food S [facility] Cosopt Cosopt Yes Arnol not Common [facility] defined [facility] Metoprolol Metoprolol Yes Arnol 2 tablet Common Tartrate Tartrate Velez with food S [facility] Cefpodoxime Cefpodoxime No 1{table BID Cefpodoxim Proxetil Proxetil t_with_ e Proxetil 200 MG 200 MG food} 200 MG Cosopt Cosopt No Aspirin 81 Aspirin 81 No 1{table QD 81 MG 81 MG t} Cefpodoxime Cefpodoxime No 1{table BID Proxetil Proxetil t_with_ 200 MG 200 MG food} Keira Crockett No Uroxatral Uroxatral No 10 MG 10 MG Metoprolol Metoprolol No Tartrate 50 Tartrate 50 MG MG Cosopt Cosopt No Cosopt Metoprolol Metoprolol No Metoprolol Tartrate 50 Tartrate 50 Tartrate MG MG 50 MG Valsartan Valsartan No 1{table QD Valsartan 160 MG 160 MG t} 160 MG Lumigan Lumigan No Lumigan Aspirin 81 Aspirin 81 No 1{table QD Aspirin 81 81 MG 81 MG t} 81 MG Cosopt Cosopt No Cosopt Metoprolol Metoprolol No Metoprolol Tartrate 50 Tartrate 50 Tartrate MG MG 50 MG Valsartan Valsartan No 1{table QD Valsartan 160 MG 160 MG t} 160 MG Lumigan Lumigan No Lumigan Aspirin 81 Aspirin 81 No 1{table QD Aspirin 81 81 MG 81 MG t} 81 MG Cosopt Cosopt No Cosopt Valsartan Valsartan No 1{table QD Valsartan 160 MG 160 MG t} 160 MG Lumigan Lumigan No Lumigan Aspirin 81 Aspirin 81 No 1{table QD Aspirin 81 81 MG 81 MG t} 81 MG Metoprolol Metoprolol No Metoprolol Tartrate 50 Tartrate 50 Tartrate MG MG 50 MG Cosopt Cosopt No Cosopt Valsartan Valsartan No 1{table QD Valsartan 160 MG 160 MG t} 160 MG Lumigan Lumigan No Lumigan Aspirin 81 Aspirin 81 No 1{table QD Aspirin 81 81 MG 81 MG t} 81 MG Metoprolol Metoprolol No Metoprolol Tartrate 50 Tartrate 50 Tartrate MG MG 50 MG Valsartan Valsartan No 1{table QD Valsartan 160 MG 160 MG t} 160 MG Lumigan Lumigan No Lumigan Cosopt Cosopt No Cosopt Potassium Potassium No Potassium Calcium Calcium No Calcium Metoprolol Metoprolol No Metoprolol Succinate Succinate Succinate Repatha Repatha No Repatha Docusate Docusate No Docusate Calcium Calcium Calcium ASA-APAP-Ca ASA-APAP-Ca No ASA-APAP-C ff Buffered ff Buffered aff Buffered Metoprolol Metoprolol No Metoprolol Tartrate 50 Tartrate 50 Tartrate MG MG 50 MG Valsartan Valsartan No Valsartan Magnesium Magnesium No Magnesium Aspirin 81 Aspirin 81 No 1{table QD Aspirin 81 81 MG 81 MG t} 81 MG Vitamin A & Vitamin A & No Vitamin A D D & D Valsartan Valsartan No 1{table QD Valsartan 160 MG 160 MG t} 160 MG Keira Crockett No Keira Cosopt Cosopt No Cosopt Potassium Potassium No Potassium Calcium Calcium No Calcium Metoprolol Metoprolol No Metoprolol Succinate Succinate Succinate Repatha Repatha No Repatha Docusate Docusate No Docusate Calcium Calcium Calcium ASA-APAP-Ca ASA-APAP-Ca No ASA-APAP-C ff Buffered ff Buffered aff Buffered Metoprolol Metoprolol No Metoprolol Tartrate 50 Tartrate 50 Tartrate MG MG 50 MG Valsartan Valsartan No Valsartan Magnesium Magnesium No Magnesium Aspirin 81 Aspirin 81 No 1{table QD Aspirin 81 81 MG 81 MG t} 81 MG Vitamin A & Vitamin A & No Vitamin A D D & D Valsartan Valsartan No 1{table QD Valsartan 160 MG 160 MG t} 160 MG Keira Crockett No Keira Cosopt Cosopt No Cosopt Potassium Potassium No Potassium Calcium Calcium No Calcium Metoprolol Metoprolol No Metoprolol Succinate Succinate Succinate Repatha Repatha No Repatha Docusate Docusate No Docusate Calcium Calcium Calcium ASA-APAP-Ca ASA-APAP-Ca No ASA-APAP-C ff Buffered ff Buffered aff Buffered Metoprolol Metoprolol No Metoprolol Tartrate 50 Tartrate 50 Tartrate MG MG 50 MG Valsartan Valsartan No Valsartan Magnesium Magnesium No Magnesium Aspirin 81 Aspirin 81 No 1{table QD Aspirin 81 81 MG 81 MG t} 81 MG Vitamin A & Vitamin A & No Vitamin A D D & D Valsartan Valsartan No 1{table QD Valsartan 160 MG 160 MG t} 160 MG Keira Crockett No Keira Cosopt Cosopt No Cosopt Potassium Potassium No Potassium Calcium Calcium No Calcium Metoprolol Metoprolol No Metoprolol Succinate Succinate Succinate Repatha Repatha No Repatha Docusate Docusate No Docusate Calcium Calcium Calcium ASA-APAP-Ca ASA-APAP-Ca No ASA-APAP-C ff Buffered ff Buffered aff Buffered Metoprolol Metoprolol No Metoprolol Tartrate 50 Tartrate 50 Tartrate MG MG 50 MG Valsartan Valsartan No Valsartan Magnesium Magnesium No Magnesium Aspirin 81 Aspirin 81 No 1{table QD Aspirin 81 81 MG 81 MG t} 81 MG Vitamin A & Vitamin A & No Vitamin A D D & D Valsartan Valsartan No 1{table QD Valsartan 160 MG 160 MG t} 160 MG Keira Marieigan No Lumigan Cosopt Cosopt No Cosopt Potassium Potassium No Potassium Calcium Calcium No Calcium Metoprolol Metoprolol No Metoprolol Succinate Succinate Succinate Repatha Repatha No Repatha Docusate Docusate No Docusate Calcium Calcium Calcium ASA-APAP-Ca ASA-APAP-Ca No ASA-APAP-C ff Buffered ff Buffered aff Buffered Metoprolol Metoprolol No Metoprolol Tartrate 50 Tartrate 50 Tartrate MG MG 50 MG Valsartan Valsartan No Valsartan Magnesium Magnesium No Magnesium Aspirin 81 Aspirin 81 No 1{table QD Aspirin 81 81 MG 81 MG t} 81 MG Vitamin A & Vitamin A & No Vitamin A D D & D Valsartan Valsartan No 1{table QD Valsartan 160 MG 160 MG t} 160 MG Keira Crockett No Cynthiaigan Cosopt Cosopt No Cosopt Potassium Potassium No Potassium Calcium Calcium No Calcium Metoprolol Metoprolol No Metoprolol Succinate Succinate Succinate Repatha Repatha No Repatha Docusate Docusate No Docusate Calcium Calcium Calcium ASA-APAP-Ca ASA-APAP-Ca No ASA-APAP-C ff Buffered ff Buffered aff Buffered Metoprolol Metoprolol No Metoprolol Tartrate 50 Tartrate 50 Tartrate MG MG 50 MG Valsartan Valsartan No Valsartan Magnesium Magnesium No Magnesium Aspirin 81 Aspirin 81 No 1{table QD Aspirin 81 81 MG 81 MG t} 81 MG Vitamin A & Vitamin A & No Vitamin A D D & D Vitamin A & Vitamin A & No Vitamin A D D & D Valsartan Valsartan No 1{table QD Valsartan 160 MG 160 MG t} 160 MG [facility] Cosopt Potassium Potassium No Potassium Calcium Calcium No Calcium Metoprolol Metoprolol No Metoprolol Succinate Succinate Succinate Repatha Repatha No Repatha Docusate Docusate No Docusate Calcium Calcium Calcium Metoprolol Metoprolol No Metoprolol Tartrate 50 Tartrate 50 Tartrate MG MG 50 MG Valsartan Valsartan No Valsartan Magnesium Magnesium No Magnesium Aspirin 81 Aspirin 81 No 1{table QD Aspirin 81 81 MG 81 MG t} 81 MG ASA-APAP-Ca ASA-APAP-Ca No ASA-APAP-C ff Buffered ff Buffered aff Buffered Vitamin A & Vitamin A & No Vitamin A D D & D Valsartan Valsartan No 1{table QD Valsartan 160 MG 160 MG t} 160 MG [facility] No Cosopt Potassium Potassium No Potassium Calcium Calcium No Calcium Metoprolol Metoprolol No Metoprolol Succinate Succinate Succinate Repatha Repatha No Repatha Docusate Docusate No Docusate Calcium Calcium Calcium Metoprolol Metoprolol No Metoprolol Tartrate 50 Tartrate 50 Tartrate MG MG 50 MG Valsartan Valsartan No Valsartan Magnesium Magnesium No Magnesium Aspirin 81 Aspirin 81 No 1{table QD Aspirin 81 81 MG 81 MG t} 81 MG ASA-APAP-Ca ASA-APAP-Ca No ASA-APAP-C ff Buffered ff Buffered aff Buffered Valsartan Valsartan No Valsartan Calcium Calcium No Calcium Vitamin A & Vitamin A & No Vitamin A D D & D ASA-APAP-Ca ASA-APAP-Ca No ASA-APAP-C ff Buffered ff Buffered aff Buffered Repatha Repatha No Repatha Potassium Potassium No Potassium Docusate Docusate No Docusate Calcium Calcium Calcium [facility] No [facility] Valsartan Valsartan No 1{table QD Valsartan 160 MG 160 MG t} 160 MG Cosopt Cosopt No Cosopt Aspirin 81 Aspirin 81 No 1{table QD Aspirin 81 81 MG 81 MG t} 81 MG Metoprolol Metoprolol No Metoprolol Succinate Succinate Succinate Magnesium Magnesium No Magnesium Metoprolol Metoprolol No Metoprolol Tartrate 50 Tartrate 50 Tartrate MG MG 50 MG Valsartan Valsartan No Valsartan Cosopt Cosopt No Cosopt ASA-APAP-Ca ASA-APAP-Ca No ASA-APAP-C ff Buffered ff Buffered aff Buffered Vitamin A & Vitamin A & No Vitamin A D D & D Repatha Repatha No Repatha Potassium Potassium No Potassium Docusate Docusate No Docusate Calcium Calcium Calcium Calcium Calcium No Calcium Valsartan Valsartan No 1{table QD Valsartan 160 MG 160 MG t} 160 MG Magnesium Magnesium No Magnesium Aspirin 81 Aspirin 81 No 1{table QD Aspirin 81 81 MG 81 MG t} 81 MG Metoprolol Metoprolol No Metoprolol Succinate Succinate Succinate Lumigan Lumigan No Lumigan Metoprolol Metoprolol No Metoprolol Tartrate 50 Tartrate 50 Tartrate MG MG 50 MG Valsartan Valsartan No Valsartan Cosopt Cosopt No Cosopt ASA-APAP-Ca ASA-APAP-Ca No ASA-APAP-C ff Buffered ff Buffered aff Buffered Vitamin A & Vitamin A & No Vitamin A D D & D Repatha Repatha No Repatha Potassium Potassium No Potassium Docusate Docusate No Docusate Calcium Calcium Calcium Calcium Calcium No Calcium Valsartan Valsartan No 1{table QD Valsartan 160 MG 160 MG t} 160 MG Magnesium Magnesium No Magnesium Aspirin 81 Aspirin 81 No 1{table QD Aspirin 81 81 MG 81 MG t} 81 MG Metoprolol Metoprolol No Metoprolol Succinate Succinate Succinate Lumigan Lumigan No Lumigan Metoprolol Metoprolol No Metoprolol Tartrate 50 Tartrate 50 Tartrate MG MG 50 MG Lumigan Lumigan No Lumigan Aspirin 81 Aspirin 81 No 1{table QD Aspirin 81 81 MG 81 MG t} 81 MG Metoprolol Metoprolol No Metoprolol Tartrate 50 Tartrate 50 Tartrate MG MG 50 MG Uroxatral Uroxatral No Uroxatral 10 MG 10 MG 10 MG Cosopt Cosopt No Cosopt Immunizations Ordered Immunization Filled Immunization Date Status Commen ts Source Name Name Gentamicin 80mg Gentamicin 80mg 2020-06-23 [facility]pleted [facility]:16[facility]00 [facility] Afluria single dose Afluria single dose 2019-02-06 Completed [facility] 16:27:00 [facility] Afluria single dose Afluria single dose 2019-02-06 Completed [facility] 16:27:00 [facility] Afluria single dose Afluria single dose 2019-02-06 Completed [facility] 16:27:00 [facility] Afluria single dose Afluria single dose 2019-02-06 Completed [facility] 16:27:00 [facility] Afluria single dose Afluria single dose 2019-02-06 Completed [facility] 16:27:00 [facility] Afluria single dose Afluria single dose 2019-02-06 Completed [facility] 16:27:00 [facility] Afluria single dose Afluria single dose 2019-02-06 Completed [facility] 16:27:00 [facility] Afluria single dose Afluria single dose 2019-02-06 [facility]pleted [facility] 16:27:00 [facility] Afluria single dose Afluria single dose 2019-02-06 [facility]pleted [facility] 16:27:00 - [facility] Afluria single dose Afluria single dose 2019-02-06 Completed [facility] 16:27:00 [facility] Afluria single dose Afluria single dose 2019-02-06 Completed [facility] 16:27:00 [facility] Afluria single dose Afluria single dose 2019-02-06 Completed [facility] 16:27:00 [facility] Afluria single dose Afluria single dose 2019-02-06 Completed [facility] 16:27:00 - [facility] Afluria single dose Afluria single dose 2019-02-06 Completed [facility] 16:27:00 - [facility] Afluria single dose Afluria single dose 2019-02-06 Completed [facility] 16:27:00 [facility] Afluria single dose Afluria single dose 2019-02-06 Completed [facility] 16:27:00 [facility] Afluria single dose Afluria single dose 2019-02-06 Completed [facility] 16:27:00 [facility] Afluria single dose Afluria single dose 2019-02-06 Completed [facility] 00:00:00 [facility] Vital Signs Vital Name Observation Time Observation Value Comments Source Height 2022-02-21 00:00:00 69 [in_i] [facility] BMI (Body Mass 2022-02-21 00:00:00 27.3 kg/m2 [facility] Body Weight 2022-02-21 00:00:00 185 [lb_av] [facility] Height 2022-02-07 00:00:00 69 [in_i] [facility] BMI (Body Mass 2022-02-07 00:00:00 27.3 kg/m2 [facility] Body Weight 2022-02-07 00:00:00 185 [lb_av] [facility] Height 2021-11-01 00:00:00 69 [in_i] [facility] BMI (Body Mass 2021-11-01 00:00:00 27.3 kg/m2 [facility] Body Weight 2021-11-01 00:00:00 185 [lb_av] [facility] height 2021-10-18 13:30:00 69 [in_i] [facility] weight 2021-10-18 13:30:00 185 [lb_av] [facility] temperature 2021-10-18 13:30:00 97.2 [degF] [facility] bmi 2021-10-18 13:30:00 27.32 kg/m2 [facility] blood pressure 2021-10-18 13:30:00 139 mm[Hg] [facility] - systolic [facility] blood pressure 2021-10-18 13:30:00 78 mm[Hg] [facility] - diastolic [facility] height 2021-10-10 11:45:00 69 [in_i] [facility] weight 2021-10-10 11:45:00 187.6 [lb_av] Common [facility] temperature 2021-10-10 11:45:00 97.7 [degF] Common [facility] bmi 2021-10-10 11:45:00 27.7 kg/m2 [facility] oximetry 2021-10-10 11:45:00 97 % [facility] respiratory rate 2021-10-10 11:45:00 16 /min [facility] blood pressure 2021-10-10 11:45:00 160 mm[Hg] [facility] - systolic [facility] blood pressure 2021-10-10 11:45:00 73 mm[Hg] [facility] - diastolic [facility] height 2021-09-14 16:20:00 69 [in_i] [facility] - [facility] weight 2021-09-14 16:20:00 184.2 [lb_av] Common [facility] temperature 2021-09-14 16:20:00 97.3 [degF] [facility] - [facility] bmi 2021-09-14 16:20:00 27.2 kg/m2 [facility] oximetry 2021-09-14 16:20:00 98 % Common S [facility] respiratory rate 2021-09-14 16:20:00 16 /min [facility] blood pressure 2021-09-14 16:20:00 139 mm[Hg] Common [facility] - systolic [facility] blood pressure 2021-09-14 16:20:00 77 mm[Hg] Common [facility] - diastolic [facility] height 2021-07-06 10:00:00 69 [in_i] [facility] 10:00:00 188.6 [lb_av] [facility] temperature 2021-07-06 10:00:00 98 [degF] [facility] bmi 2021-07-06 10:00:00 27.85 kg/m2 Common S pirit [facility] respiratory rate 2021-07-06 10:00:00 16 /min [facility] blood pressure 2021-07-06 10:00:00 143 mm[Hg] [facility] - systolic [facility] blood pressure 2021-07-06 10:00:00 66 mm[Hg] [facility] - diastolic [facility] height 2021-01-05 13:00:00 69 [in_i] [facility] weight 2021-01-05 13:00:00 192 [lb_av] Common [facility] temperature 2021-01-05 13:00:00 98.7 [degF] [facility] bmi 2021-01-05 13:00:00 28.35 kg/m2 [facility] oximetry 2021-01-05 13:00:00 97 % [facility] blood pressure 2021-01-05 13:00:00 151 mm[Hg] [facility] - systolic [facility] blood pressure 2021-01-05 13:00:00 66 mm[Hg] [facility] - diastolic [facility] height 2020-09-06 15:30:00 [facility] weight 2020-09-06 15:30:00 175 [lb_av] [facility] temperature 2020-09-06 15:30:00 97.9 [degF] [facility] bmi 2020-09-06 15:30:00 25.84 kg/m2 [facility] oximetry 2020-09-06 15:30:00 97 % [facility] blood pressure 2020-09-06 15:30:00 158 mm[Hg] [facility] - systolic [facility] blood pressure 2020-09-06 15:30:00 75 mm[Hg] [facility] - diastolic [facility] Procedures Procedure Date / Time Performing Clinician Source Performed [id number] 2022-01-29 00:00:00 [facility] [id number] 2022-01-29 00:00:00 [facility] [id number] 2022-01-29 00:00:00 [facility] [id number] 2022-01-18 00:00:00 [email or web address] [facility] Total Hip Arthroplasty 2022-01-18 00:00:00 Abdulkadir lyles [facility] XR, hip + pelvis, 2021-11-01 00:00:00 Amber durán unilateral, 2 or 3 view Sports M edicine MR PELVIS WITH & 2021-07-25 17:09:[address] [facility] Eye [facility] Plan of Care Planned Activity Planned Date Details Comments Source Future Scheduled Test 2022-03-[address] [facility] 00:00:00 (12+) [code = Medical Center DEPRESSION SCREENING (12+)] Future Scheduled Test 2022-03-04 FALLS RISK SCREENING [facility] 00:00:00 [code = FALLS RISK Medical C enter SCREENING] Future Scheduled Test 2021-11-[address] [facility] 00:00:00 (#1) [code = Medical Center INFLUENZA VACCINE (#1)] Future Scheduled Test 2021-11-[address] [facility] 00:00:00 (#1) [code = Medical Center INFLUENZA VACCINE (#1)] Future Scheduled Test 2021-11-[address] [facility] 00:00:00 (#1) [code = Medical Center INFLUENZA VACCINE (#1)] Future Scheduled Test 2021-11-[address] [facility] 00:00:00 (#1) [code = Medical Center INFLUENZA VACCINE (#1)] Future Scheduled Test 2021-11-[address] [facility] 00:00:00 (#1) [code = Medical Center INFLUENZA VACCINE (#1)] Future Scheduled Test 2021-03-[address] [facility] 00:00:00 (12+) [code = Medical Center DEPRESSION SCREENING (12+)] Future Scheduled Test 2021-03-04 FALLS RISK SCREENING [facility] 00:00:00 [code = FALLS RISK Medical C enter SCREENING] Future Scheduled Test 2021-03-[address] [facility] 00:00:00 (12+) [code = Medical Center DEPRESSION SCREENING (12+)] Future Scheduled Test 2021-03-04 FALLS RISK SCREENING [facility] 00:00:00 [code = FALLS RISK Medical C enter SCREENING] Future Scheduled Test 2021-03-[address] [facility] 00:00:00 (12+) [code = Medical Center DEPRESSION SCREENING (12+)] Future Scheduled Test 2021-03-04 FALLS RISK SCREENING [facility] 00:00:00 [code = FALLS RISK Medical C enter SCREENING] Future Scheduled Test 2021-03-[address] [facility] 00:00:00 (12+) [code = Medical Center DEPRESSION SCREENING (12+)] Future Scheduled Test 2021-03-04 FALLS RISK SCREENING [facility] 00:00:00 [code = FALLS RISK Medical C enter SCREENING] Future Scheduled Test 2021-02-[address] [facility] 00:00:00 WELLNESS (YEAR 2 or Medical Center FIRST YEAR if no IPPE) [code = MEDICARE ANNUAL WELLNESS (YEAR 2 or FIRST YEAR if no IPPE)] Future Scheduled Test 2021-02-[address] [facility] 00:00:00 WELLNESS (YEAR 2 or Medical Center FIRST YEAR if no IPPE) [code = MEDICARE ANNUAL WELLNESS (YEAR 2 or FIRST YEAR if no IPPE)] Future Scheduled Test 2021-02-[address] [facility] 00:00:00 WELLNESS (YEAR 2 or Medical Center FIRST YEAR if no IPPE) [code = MEDICARE ANNUAL WELLNESS (YEAR 2 or FIRST YEAR if no IPPE)] Future Scheduled Test 2021-02-[address] [facility] 00:00:00 WELLNESS (YEAR 2 or Medical Center FIRST YEAR if no IPPE) [code = MEDICARE ANNUAL WELLNESS (YEAR 2 or FIRST YEAR if no IPPE)] Future Scheduled Test 2021-02-[address] [facility] 00:00:00 WELLNESS (YEAR 2 or Medical Center FIRST YEAR if no IPPE) [code = MEDICARE ANNUAL WELLNESS (YEAR 2 or FIRST YEAR if no IPPE)] Future Scheduled Test 2020-02-06 PNEUMOCOCCAL 65+ [facility]RS [facility] 00:00:00 (1 - PCV) [code = Medical Ce nter PNEUMOCOCCAL 65+ YRS (1 - PCV)] Future Scheduled Test 2020-02-06 PNEUMOCOCCAL 65+ YRS [facility] 00:00:00 (1 - PCV) [code = Medical Ce nter PNEUMOCOCCAL 65+ YRS (1 - PCV)] Future Scheduled Test 2020-02-06 PNEUMOCOCCAL 65+ YRS [facility] 00:00:00 (1 - PCV) [code = Medical Ce nter PNEUMOCOCCAL 65+ YRS (1 - PCV)] Future Scheduled Test 2020-02-06 PNEUMOCOCCAL 65+ YRS [facility] 00:00:00 (1 - PCV) [code = Medical Ce nter PNEUMOCOCCAL 65+ YRS (1 - PCV)] Future Scheduled Test 2020-02-06 PNEUMOCOCCAL 65+ YRS [facility] 00:00:00 (1 - PCV) [code = Medical Ce nter PNEUMOCOCCAL 65+ YRS (1 - PCV)] Future Scheduled Test 2005 SHINGLES VACCINES ([address] [facility] 00:00:00 of 2) [code = Medical Center SHINGLES VACCINES (1 of 2)] Future Scheduled Test 2005 SHINGLES VACCINES ([address] [facility] 00:00:00 of 2) [code = Medical Center SHINGLES VACCINES (1 of 2)] Future Scheduled Test 2005 SHINGLES VACCINES ([address] [facility] 00:00:00 of 2) [code = Medical Center SHINGLES VACCINES (1 of 2)] Future Scheduled Test 2005 SHINGLES VACCINES ([address] [facility] 00:00:00 of 2) [code = Medical Center SHINGLES VACCINES (1 of 2)] Future Scheduled Test 2005 SHINGLES VACCINES ([address] [facility] 00:00:00 of 2) [code = Medical Center SHINGLES VACCINES (1 of 2)] Future Scheduled Test 1974 DTAP/TDAP/TD VACCINES [facility] 00:00:00 (1 - Tdap) [code = Medical C enter DTAP/TDAP/TD VACCINES (1 - Tdap)] Future Scheduled Test 1974 DTAP/TDAP/TD VACCINES [facility] 00:00:00 (1 - Tdap) [code = Medical C enter DTAP/TDAP/TD VACCINES (1 - Tdap)] Future Scheduled Test 1974 DTAP/TDAP/TD VACCINES [facility] 00:00:00 (1 - Tdap) [code = Medical C enter DTAP/TDAP/TD VACCINES (1 - Tdap)] Future Scheduled Test 1974 DTAP/TDAP/TD VACCINES [facility] 00:00:00 (1 - Tdap) [code = Medical C enter DTAP/TDAP/TD VACCINES (1 - Tdap)] Future Scheduled Test 1974 DTAP/TDAP/TD VACCINES [facility] 00:00:00 (1 - Tdap) [code = Medical C enter DTAP/TDAP/TD VACCINES (1 - Tdap)] Future Scheduled Test 1973 HEPATITIS C SCREENING [facility] 00:00:00 [code = HEPATITIS C [facility] Center SCREENING] Future Scheduled Test 1973 HEPATITIS C SCREENING [facility] 00:00:00 [code = HEPATITIS C Medical Center SCREENING] Future Scheduled Test 1973 HEPATITIS C SCREENING [facility] 00:00:00 [code = HEPATITIS C Medical Center SCREENING] Future Scheduled Test 1973 HEPATITIS C SCREENING [facility] 00:00:00 [code = HEPATITIS C Medical Center SCREENING] Future Scheduled Test 1973 HEPATITIS C SCREENING [facility] 00:00:00 [code = HEPATITIS C Medical Center SCREENING] Future Scheduled Test [address] [facility] 00[facility]:00 [facility]ing and Medical Cente r Screening (12+) [code = Tobacco Cessation Counseling and Screening (12+)] Future Scheduled Test [address] [facility] 00:00:00 Counseling and Medical Cente r Screening (12+) [code = Tobacco Cessation Counseling and Screening (12+)] Future Scheduled Test [address] [facility] 00:00:00 Counseling and Medical Cente r Screening (12+) [code = Tobacco Cessation Counseling and Screening (12+)] Future Scheduled Test [address] [facility] 00:00:00 Counseling and Medical Cente r Screening (12+) [code = Tobacco Cessation Counseling and Screening (12+)] Future Scheduled Test 1955 COVID-19 VACCINE (#1) [facility] 00:00:00 [code = COVID-[address] VACCINE (#1)] Future Scheduled Test 1955 COVID-19 VACCINE (#1) [facility] 00:00:00 [code = COVID-[address] VACCINE (#1)] Future Scheduled Test 1955 COVID-19 VACCINE (#1) [facility] 00:00:00 [code = COVID-[address] VACCINE (#1)] Future Scheduled Test 1955 COVID-19 VACCINE (#1) [facility] 00:00:00 [code = COVID-[address] VACCINE (#1)] Future Scheduled Test 1955 COVID-19 VACCINE (#1) [facility] 00:00:00 [code = COVID-[address] VACCINE (#1)] Future Scheduled Test [address] [facility] 00:00:00 (combo) [code = CT Medical C enter Colonography (combo)] Future Scheduled Test 1955 [facility] colon (procedure) [code = 300360716] Future Scheduled Test 1955 [facility] colon (procedure) [code = 533481076] Future Scheduled Test 1955 [facility] colon (procedure) [code = 897874100] Future Scheduled Test 1955 [facility] colon (procedure) [code = 076876043] Future Scheduled Test 1955 Sigmoidoscopy [code = [facility] 00:00:00 Sigmoidoscopy] Medical Janneth cummings Future Scheduled Test [address] [facility] 00:00:00 (combo) [code = CT Medical C enter Colonography (combo)] Future Scheduled Test 1955 [facility] colon (procedure) [code = 803466274] Future Scheduled Test 1955 [facility] colon (procedure) [code = 979715795] Future Scheduled Test 1955 [facility] colon (procedure) [code = 336261095] Future Scheduled Test 1955 [facility] colon (procedure) [code = 554728643] Future Scheduled Test 1955 Sigmoidoscopy [code = [facility] 00:00:00 Sigmoidoscopy] Medical Janneth r Future Scheduled Test [address] [facility] 00:00:00 (combo) [code = CT Medical C enter Colonography (combo)] Future Scheduled Test 1955 [facility] colon (procedure) [code = 348960300] Future Scheduled Test 1955 [facility] colon (procedure) [code = 945083942] Future Scheduled Test [address] [facility] 00:00:00 (combo) [code = CT Medical C enter Colonography (combo)] Future Scheduled Test 1955 [facility] colon (procedure) [code = 902579937] Future Scheduled Test 1955 [facility] 00:[facility]:00 [facility] colon (procedure) [code = 846695887] Future Scheduled Test 1955 [facility] 00:[facility]:00 [facility] colon (procedure) [code = 853330245] Future Scheduled Test 1955 [facility] 00:[facility]:00 [facility] colon (procedure) [code = 300119091] Future Scheduled Test 1955 Sigmoidoscopy [code = [facility] 00:00:00 Sigmoidoscopy] Medical Janneth cummings Future Scheduled Test 1955 [facility] 00:[facility]:00 [facility] colon (procedure) [code = 709427306] Future Scheduled Test 1955 [facility] colon (procedure) [code = 213391466] Future Scheduled Test 1955 Sigmoidoscopy [code = [facility] 00:00:00 Sigmoidoscopy] Medical Janneth cummings Future Scheduled Test [address] [facility] 00:00:00 (combo) [code = CT Medical C enter Colonography (combo)] Future Scheduled Test 1955 [facility] colon (procedure) [code = 342323995] Future Scheduled Test 1955 [facility] 00:[facility]:00 [facility] colon (procedure) [code = 677331355] Future Scheduled Test 1955 [facility] 00:[facility]:00 [facility] colon (procedure) [code = 251410519] Future Scheduled Test 1955 [facility] 00:[facility] colon (procedure) [code = 770687916] Future Scheduled Test 1955 Sigmoidoscopy [code = [facility] 00:00:00 Sigmoidoscopy] Medical Janneth cummings Future Appointment 2022-03-28 [facility], [address] [facility] 13:15:00 [facility] [id number] Instructions [facility] Sports Medicine Encounters Start End Encounter Admission Attending Care Care Encounter Source Date/Time Date/Time Type Type Clinicians Facility Department ID 2022 Outpatient 3 [facility] 2021 [facility] 11:22:14 hemandi, 1205 [facility] [place] 2022-02-01 Outpatient 3 [facility] [place] [id number] [facility] 08:55:42 adrian, 1201 [facility] [place] 2022-01-31 Outpatient 3 [id number] [facility] [id number] [facility] 14:54:59 1130 [facility] [place] 2021-10-18 Outpatient Oce, Na [facility] [id number] Common 13:37:00 [facility] 2021-10-11 Outpatient Emily Na [facility] [id number] Common 10:19:00 [facility] 2021-09-14 Outpatient Coe, Na [facility] [id number] 2 Common 17:08:01 [facility] 2021-03-29 Outpatient Coe, Na [facility]LMLC [facility] [id number] 2 Common 12:32:13 [id number] [facility] 2021-03-29 Outpatient Coe, Na [facility] [id number] 2 Common 12:31:45 [id number] [facility] 2021-03-29 Outpatient Coe, Na STLMLC [facility] [id number] 2 Common 12:30:30 [id number] [facility] 2021-03-29 Outpatient Coe, Na STLMLC [facility] [id number] 2 Common 11:33:01 [id number] [facility] 2022-03-18 2022-03-18 (WEB) STLMLC [facility] [id number] Co mmon 00:00:00 00:00:00 [facility] 2022-03-17 2022-03-17 Outpatient FOG_Mathews AOSM AOSM [id number] Amber 00:00:00 00:00:00 _Amanda [id number] [facility] 2022-02-28 2022-02-28 (WEB) STLMLC ST[facility] [id number] Co mmon 00:00:00 00:00:00 [facility] 2022-02-21 2022-02-21 Outpatient FOG_Mathews AOSM AOSM [id number] Amber 00:00:00 00:00:00 _Amanda 517296 [facility] 2022-02-21 2022-02-21 Outpatient FOG_Mathews AOSM AOSM [id number] Amber 00:00:00 00:00:00 _Amanda [id number] [facility] 2022-02-21 2022-02-21 Mchenry AO [place] - Orth[place] [id number] Amber 00:00:00 00:00:00 NIMESH [facility] MD: 7401 FOG_Ofc dic [facility] [place] [address] , Ph. [phone] 2022-02-14 2022-02-14 Outpatient FOG_Mathews AOSM AOSM [id number] Amber 00:00:00 00:00:00 _Amanda [id number] [facility] 2022-02-14 2022-02-14 Outpatient FOG_Mathews AOSM AOSM [id number] Amber 00:00:00 00:00:00 _Amanda 052823 [facility] 2022-02-13 2022-02-13 Outpatient FOG_Mathews AOSM AOSM [id number] Amber 00:00:00 00:00:00 _Amanda 364191 [facility] 2022-02-12 2022-02-12 Outpatient FOG_Mathews AOSM AOSM [id number] Amber 00:00:00 00:00:00 _Amanda 759924 Orth [facility] 2022-02-07 2022-02-07 Outpatient FOG_Mathews AOSM AOSM [id number] Amber 00:00:00 00:00:00 _Amanda [id number] [facility] 2022-02-07 2022-02-07 [place]ry AO [place] - [place] [id number] Amber 00:00:00 00:00:00 NIMESH [facility] MD: 7401 FOG_Ofc dic [facility] [place] [address] , Ph. [phone] 2022-02-06 2022-02-06 Outpatient FOG_Mathews AOSM AOSM [id number] Amber 00:00:00 00:00:00 _Amanda 856981 [facility] 2022-02-04 2022-02-04 Outpatient FOG_Mathews AOSM AOSM [id number] Amber 00:00:00 00:00:00 _Amanda 642953 [facility] 2022-01-27 2022-02-02 Inpatient EM ATTILA Bermudez ADMTorri [id number] [facility] 11:19:00 10:35:00 Ross [facility] [place] [facility] 2022-01-31 2022-01-31 OFFICE [facility] [id number] Co mmon 00:00:00 00:00:00 VISIT Esteban ALTMAN PT - CHI LEVEL 2 [facility] 2022-01-29 2022-01-29 Outpatient FOG_Mark AO AO [id number] Amber 00:00:00 00:00:00 _Amanda [id number] [facility] 2022-01-29 2022-01-29 [place]ry [place] - [place] [id number] Amber 00:00:00 00:00:00 NIMESH [facility] MD: 7401 [facility] [address] , Ph. [phone] 2022-01-27 2022-01-27 Outpatient THERESA Bermudez LABO [id number] [facility] 17:15:00 17:15:00 Ross 21 [facility] 2022-01-27 2022-01-27 [place]ry [place] - [place] [id number] Amber 00:00:00 00:00:00 NIMESH [facility] MD: 7401 [facility] [address] , Ph. [phone] 2022-01-18 2022-01-19 Inpatient KEMI Flores, HCATO SURG [id number] [facility] 06:49:00 13:11:00 Tylor 21 [place] [facility] 2022-01-18 2022-01-18 Tylor AOSM [place] - [place] [id number] Amber 00:00:00 00:00:00 April Flores MD: 7401 [facility] [address] , Ph. [phone] 2022-01-16 2022-01-16 Outpatient FOG_Mark AO AO [id number] Amber 00:00:00 00:00:00 _Amanda [id number] [facility] 2022-01-08 2022-01-08 (WEB) [facility] [id number] Co mmon 00:00:00 00:00:00 [facility] 2021-12-21 2021-12-21 Outpatient LUKE Flores LABO [id number] [facility] 16:09:00 16:09:00 Tylor 92 [facility] 2021-12-21 2021-12-21 Outpatient THERESA DockeryTO 3DAY [id number] [facility] 08:00:00 08:01:00 Tylor 22 [place] [facility] 2021-11-14 2021-11-14 (WEB) STLMLC [facility] [id number] Co mmon 00:00:00 00:00:00 [facility] 2021-11-14 2021-11-14 (WEB) [facility] [id number] Co mmon 00:00:00 00:00:00 [facility] 2021-11-08 2021-11-08 Outpatient FOG_Mathews AOSM AOSM [id number] Amber 00:00:00 00:00:00 _Amanda 526343 [facility] 2021-11-02 2021-11-02 (WEB) STLC ST[facility] [id number] Co mmon 00:00:00 00:00:00 [facility] 2021-11-01 2021-11-01 Outpatient FOG_Mathews AOSM AOSM [id number] Amber 00:00:00 00:00:00 _Amanda [id number] [facility] 2021-11-01 2021-11-01 Tylor AOSM [place] - Ortho Amber 00:00:00 00:00:00 April Flores MD: 7401 FOG_Ofc [facility], [place] [address] , Ph. [phone] 2021-11-01 2021-11-01 Outpatient Mark AOSM AOSM [id number] 00:00:00 00:00:00 Tylor [id number] 2021-10-31 2021-10-31 Outpatient FOG_Mathews AOSM AOSM [id number] Amber 00:00:00 00:00:00 _Amanda 633196 [facility] 2021-10-27 2021-10-27 Outpatient FOG_Mathews AOSM AOSM [id number] Amber 00:00:00 00:00:00 _Amanda 610992 [facility] 2021-10-19 2021-10-19 (TEL) STLMLC STLMLC [id number] Co mmon 00:00:00 00:00:00 [facility] 2021-10-19 2021-10-19 (TEL) STLMLC STLMLC [id number] Co mmon 00:00:00 00:00:00 [facility] 2021-10-18 2021-10-18 OFFICE STLMLC STLMLC [id number] Co mmon 00:00:00 00:00:00 VISIT NEW [facility] it PT LEVEL 3 - CHI [facility] 2021-10-10 2021-10-10 OFFICE STLMLC STLMLC [id number] Co mmon 00:00:00 00:00:00 VISIT Spirit ESTAB PT - CHI LEVEL 2 [facility] 2021-09-17 2021-09-17 (TEL) STLMLC STLMLC [id number] Co mmon 00:00:00 00:00:00 Spirit - [facility] 2021-09-14 2021-09-14 OFFICE STLMLC STLMLC [id number] Co mmon 00:00:00 00:00:00 VISIT [facility] PT - CHI LEVEL 4 [facility] 2021-07-25 2021-07-25 [id number] [facility] 16:00:08 23:59:00 ELIAN 2021-07-25 2021-07-25 [facility] Elian Neil [facility] [id number] [facility] 16:00:08 23:59:[address] [facility] Nick[facility] 2021-07-25 2021-07-25 Hospital Elian Neil [facility] [id number] 16:00:08 23:59:00 [facility] 3[facility] 2021-07-17 2021-07-17 (TEL) STLMLC STLMLC [id number] Co mmon 00:00:00 00:00:00 [facility] 2021-07-06 2021-07-06 Outside Praneeth [facility] [id number] 00:00:00 00:00:00 Orders [facility] 2021-07-06 2021-07-06 OFFICE STLMLC STLMLC [id number] Co mmon 00:00:00 00:00:00 VISIT EST Spir it PT LEVEL 3 - [facility] 2021-07-06 2021-07-06 Outside Praneeth [facility] [id number] 00:00:00 00:00:00 Orders [facility] 2021-01-05 2021-01-05 OFFICE STLMLC STLMLC [id number] Co mmon 00:00:00 00:00:00 VISIT [facility] PT - CHI LEVEL 5 [facility] 2020-10-21 2020-10-21 Outpatient STLMLC STLMLC [id number] Common 00:00:00 00:00:00 [facility] 2020-10-17 2020-10-17 Outpatient STLMLC STLMLC [id number] Common 00:00:00 00:00:00 [facility] 2020-10-13 2020-10-13 Outpatient STLMLC STLMLC [id number] Common 00:00:00 00:00:00 [facility] 2020-10-13 2020-10-13 Outpatient STLMLC STLMLC [id number] Common 00:00:00 00:00:00 [facility] 2020-10-07 2020-10-07 Outpatient STLMLC STLMLC [id number] Common 00:00:00 00:00:00 [facility] 2020-09-29 2020-09-29 Outpatient STLMLC STLMLC [id number] Common 00:00:00 00:00:00 [facility] 2020-09-13 2020-09-13 Outpatient STLMLC STLMLC [id number] Common 00:00:00 00:00:00 [facility] 2020-09-13 2020-09-13 Outpatient STLMLC STLMLC [id number] Common 00:00:00 00:00:00 [facility] 2020-09-06 2020-09-06 (PROC) STLMLC STLMLC [id number] Co mmon 00:00:00 00:00:00 Procedure Spir [facility] 2020-07-25 2020-07-25 Outpatient STLMLC STLMLC [id number] Common 00:00:00 00:00:00 [facility] 2020-07-07 2020-07-07 Outpatient STLMLC STLMLC [id number] Common 00:00:00 00:00:00 [facility] 2020-06-23 2020-06-23 Outpatient STLMLC STLMLC [id number] Common 00:00:00 00:00:00 [facility] 2020-06-08 2020-06-08 Outpatient STLMLC STLMLC [id number] Common 00:00:00 00:00:00 [facility] 2020-06-04 2020-06-04 Outpatient STLMLC STLMLC [id number] Common 00:00:00 00:00:00 [facility] 2020-05-31 2020-05-31 Outpatient STLMLC STLMLC [id number] Common 00:00:00 00:00:00 [facility] 2020-05-09 2020-05-09 Outpatient STLMLC STLMLC [id number] Common 00:00:00 00:00:00 [facility] 2020-05-05 2020-05-05 Outpatient STLMLC STLMLC [id number] Common 00:00:00 00:00:00 [facility] 2020-04-26 2020-04-26 Outpatient STLMLC STLMLC [id number] Common 00:00:00 00:00:00 [facility] 2020-04-22 2020-04-22 Outpatient STLMLC STLMLC [id number] Common 00:00:00 00:00:00 [facility] 2020-04-13 2020-04-13 Outpatient STLMLC STLMLC [id number] Common 00:00:00 00:00:00 [facility] 2019-09-25 2019-09-25 Outpatient [facility] [id number] Common 12:41:00 12:41:[address] [facility] 2019-09-24 2019-09-24 Outpatient [facility] [id number] Common 13:45:00 13:45:[address] [facility] 2019-02-22 2019-02-22 Outpatient [facility] [id number] Common 08:43:00 08:43:[address] [facility] 2019-02-06 2019-02-06 Outpatient [facility] [id number] Common 16:00:00 16:00:[address] [facility] Results Test Description Test Time Test Comments Results Result Comments Source HGB HCT 2022-01-31 12:17:00 Test Item Value Reference Range Interpretation Comme nts HEMOGLOBIN (test code = HGB) 9.2 g/dL 12-16 L HEMATOCRIT (test code = HCT) 28.0 % 37-47 L - XR FEMUR MIN 2 VWS [id number] 05:42:00 [facility] EF[facility]INT[facility] S[facility]HA : 1955 Sex: M Patient Name: EFRAIN CHAVEZ Unit No: [id number] EXAMS: CPT CODE: [id number] XR FEMUR MIN [address] [place] [address] IMAGES PROVIDED: 2 views of the pelvis and 3 views of the right femur FINDINGS: Right total hip arthroplasty is demonstrated with an obliquely oriented periprosthetic fracture of the proximal femoralshaft, described on concurrent CT. The acetabulum is intact. The mid to distal femur is within normal limits. IMPRESSION: Right proximal femoral periprosthetic fracture. at 0542 Reported and signed by: Parish Reyes M.D. CC: Andre Bermudez DO; Tylor Flores MD Technologist: Maddy [id number] Transcribed D/T: (0542) [facility] NAME: EFRAIN CHAVEZ [address] [facility] PHYS: Andre Jones DO : 1955 AGE: 66 SEX: M [place] [address] LOC: Y.512 A PHONE #: [phone] EXAM DATE: 01/27/2022 STATUS: ADM IN FAX #: [phone] RAD #: D/CDT PAGE 1 Signed Report Patient Name: EFRAIN CHAVEZ Unit No: [id number] EXAMS: CPT CODE: [id number] XR FEMUR MIN [address] [place] [address] (Continued) Orig Print D/T: S: 01/31/2022 (0545) [facility] NAME: EFRAIN CHAVEZ [address] [facility] PHYS: Andre Jones DO : 1955 AGE: 66SEX: [place], [place] [address] LOC: Y.512 A PHONE #: [phone] EXAM DATE: 01/27/2022 STATUS: ADM IN FAX #: [phone] RAD #: D/C DT PAGE 2 Signed Report- XR HIP BI [id number] 05:42:00 [facility] : 1955 Sex: M Patient Name: EFRAIN CHAVEZ Unit No: [id number] EXAMS: CPT CODE: [id number] XR HIP BI W/PELVIS 87866 IMAGES PROVIDED: 2 views of the pelvis and 3 views of the right femur FINDINGS: Right total hip arthroplasty is demonstrated with an obliquely oriented periprosthetic fracture of the proximal femoral shaft, described on concurrent CT. The acetabulum is intact. The mid to distal femur is within normal limits. IMPRESSION: Right proximal femoral periprosthetic fracture. at 0542 Reported and signed by: Parish Reyes M.D. CC: Andre Bermudez DO; Tylor Flores MD Technologist: Maddy Carroll [id number] Transcribed D/T: 022 (0542) [facility] NAME: EFRAIN CHAVEZ [address] PHYS: Andre Jones DO : 1955 AGE: 66 SEX: M [place], [place] [address] LOC: YKarma512 A PHONE #: [phone] EXAM DATE: 01/27/2022 STATUS: ADM IN FAX #: [phone] RAD #: D/C DT PAGE 1 Signed Report Patient Name: EFRAIN CHAVEZ Unit No: [id number] EXAMS: CPT CODE: [id number] XRHIP BI W/PELVIS 04974 (Continued) Orig Print D/T: S: 01/31/2022 (0545) [facility] NAME: EFRAIN CHAVEZ [address] [facility] PHYS: Andre Jones DO : 1955 AGE: 66 SEX: M [place], [place] [address] LOC: Y.512 A PHONE #: [phone] EXAM DATE: 01/27/2022TATUS: ADM IN FAX #: [phone] RAD #: D/C DT PAGE 2 Signed Report- XR PELVIS 1/2 [id number] 05:04:00 [facility] 1955 Sex: M Patient Name: EFRAIN CHAVEZ Unit No: [id number] EXAMS: CPT CODE: [id number] XR PELVIS 1/2 VIEWS 70995VT view of the pelvis COMMENT: Completed total right hip arthroplasty. Plate and screw fixation of the proximal femur is present with multiple cerclage wires. Prosthesis appears to be in good position. at 0504 Reported and signed by: Parish Reyes M.D. CC: Jose J Petersen II, MD; Andre Bermudez DO; Tylor Flores MD Technologist: Magalys Heard(R) Transcribed D/ (0504) [facility] NAME: EFRAIN CHAVEZ [address] [facility] PHYS: MALCOLM PetersenJose J Krishnamurthy II, MD : 1955 AGE:66 SEX: [place], [place] [address] LOC: Y.512 A PHONE #: [phone] EXAM DATE: 01/29/2022 STATUS: ADM IN FAX #: [phone] RAD #: D/C DT PAGE 1 Signed Report Patient Name: EFRAIN CHAVEZ Unit No: [id number] EXAMS: CPT CODE: [id number] XR PELVIS 1/2 VIEWS 87948 (Continued) Orig Print D/T: S: 01/31/2022 (0507) [facility] NAME: [facility]IN [facility]AVE[facility] [address] [facility] MALCOLM PetersenJose J Krishnamurthy II, MD : 1955 AGE: 66 SEX: M [place], [place] [address] LOC: Y.512 A PHONE #: [phone] EXAM DATE: 01/29/2022 STATUS: ADM IN FAX #: [phone] RAD #: D/C DT PAGE 2 Signed Report- XR PELVIS 1/2 [id number] 07:11:00[facility] : 1955 Sex: M Patient Name: EFRAIN CHAVEZ Unit No: [id number] EXAMS: CPT CODE: [id number] XR PELVIS 1/2 VIEWS [id number] LEG LENGTH FILM COMMENT: COMPARISON: No prior exams available. In progress right hip replacement is noted. AP portable right hip COMMENT: The patient is status post joint replacement with a plate and screws laterally. AP portable right hip COMMENT: Again noted is a right hip arthroplas ty with a lateral plate and screws. at 0711 Reported and signed by: El Liang MD CC: Jose J Petersen II, MD; Andre Forrest; Tylor Flores MD Technologist: Magalys Heard(R) Transcribed D/ (710) [facility] NAME: EFRAIN CHAVEZ [address] [facility] PHYS: Kedar Amaya II, MD : 1955 AGE: 66 SEX: M [place] [address] LOC: Y.512 A PHONE#: [phone] EXAM DATE: 01/29/2022 STATUS: ADM IN FAX #: [phone] RAD #: D/C DT PAGE 1 Signed Report Patient Name: EFRAIN CHAVEZ Unit No: [id number] EXAMS: CPT CODE: [id number] XR PELVIS 1/2VIEWS 71721 (Continued) Orig Print D/T: S: 01/30/2022 (07) [facility] NAME: EFRAIN CHAVEZ [address] [facility] [place] PHYS: Jose J Amaya II, MD : 1955 AGE: 66 SEX: M [place], [place] [address] LOC: Y.512 A PHONE #: [phone] EXAM DATE: 01/29/2022 STATUS:ADM IN FAX #: [phone] RAD #: D/C DT PAGE 2 Signed Report- XR PELVIS 1/2 [id number] 07:11:00[facility] : 1955 Sex: M Patient Name: EFRAIN CHAVEZ Unit No: [id number] EXAMS: CPT CODE: [id number] XR PELVIS 1/2 VIEWS [id number] LEG LENGTH FILM COMMENT: COMPARISON: No prior exams available. In progress right hip replacement is noted. AP portable right hip COMMENT: The patient is status post joint replacement with a plate and screws laterally. AP portable right hip COMMENT: Again noted is a right hip arthroplasty with a lateral plate and screws. at 0711 Reported and signed by: El Liang MD CC: Jose J Petersen II, MD; Andre Bermudez DO; Tylor Flores MD Technologist: Magalys Heard(R) Transcribed D/ (0711) DimitriL [facility] NAME: EFRAIN CHAVEZ [address] [facility] [address] PHYS: Jose J Amaya II, MD : 1955 AGE: 66 SEX: M [place], [place] [address] LOC: Y.512 A PHONE #: [phone] EXAM DATE: 01/29/2022 STATUS: ADM IN FAX #: [phone] RAD #: D/C DT PAGE 1 SignedReport Patient Name: EFRAIN CHAVEZ Unit No: [id number] EXAMS: CPT CODE: [id number] XR PELVIS 1/2VIEWS 57374 (Continued) Orig Print D/T: S: 01/30/2022 (0714) [facility] NAME: EFRAIN CHAVEZ [address] [facility] [place] PHYS: Jose J Amaya II, MD : 1955 AGE: 66 SEX: M [place] [address] LOC: Jose Lyles PHONE #: [phone] EXAM DATE: 01/29/2022 STATUS:ADM IN FAX #: [phone] RAD #: D/C DT PAGE 2 Signed Report- XR PELVIS 1/2 [id number] 07:11:00 [facility] 1955 Sex: M Patient Name: EFRAIN CHAVEZ Unit No: [id number] EXAMS: CPT CODE: [id number] XR PELVIS 1/2 VIEWS 02242 INTRAOPERATIVE LEG LENGTH FILM COMMENT: COMPARISON: No prior exams available. In progress right hip replacement is noted. AP portable right hip COMMENT: The patient is status post joint replacement witha plate and screws laterally. AP portable right hip COMMENT: Again noted is a right hip arthroplasty with a lateral plate and screws. at 0711 Reported and signed by: El Liang MD CC: Jose J Petersen II, MD; Andre Bermudez DO; Tylor Flores MD Technologist: Magalys Heard(R) Transcribed D/ (0711) [facility]amar [facility] NAME: EFRAIN CHAVEZ [address] [facility] [place] PHYS: Jose J Amaya MD : 1955 AGE: 66 SEX: M [place], [place] [address] LOC: Y.512 A PHONE #: [phone] EXAM DATE: 01/29/2022 STATUS: ADM IN FAX #: [phone] RAD #: D/C DT PAGE 1 Signed Report Patient Name: EFRAIN CHAVEZ Unit No: [id number] EXAMS: CPT CODE: [id number] XR PELVIS 1/2 VIEWS 98212 (Continued) Orig Print D/T: S: 01/30/2022 (0714) [facility] NAME: EFRAIN CHAVEZ [address] [facility] [address] PHYS: Jose J Amaya II, MD : 1955 AGE: 66 SEX: M [place], [place] [address] LOC: Y.512 A PHONE #: [phone] EXAM DATE: 01/29/2022 STATUS: ADM IN FAX #: [phone] RAD #: D/C DT PAGE 2 Signed ReportHGB HCT 2022-01-30 05:57:00 Test Item Value Reference Range Interpretation Comments HEMOGLOBIN (test code = HGB) 8.7 g/dL 12-16 L HEMATOCRIT (test code = HCT) 26.4 % 37-47 L SPECIMEN COMMENT: POD #1Hemoglobin and Hematocrit panel - [id number] 04:30:00 Test Item Value Reference Range Interpretation Comments hemoglobin (test code = hemoglobin) 8.7 g/dL 12-16 L hematocrit (test code = hematocrit) 26.4 % 37-47 L performing lab: (test code = performing lab:) [facility] MedicineHemoglobin and Hematocrit panel - Blood 2022-01-30 04:30:00 Test Item Value Reference Range Interpretation Comments hemoglobin (test code = hemoglobin) 8.7 g/dL 12-16 L hematocrit (test code = hematocrit) 26.4 % 37-47 L performing lab: (test code = performing lab:) [facility] MedicineHemoglobin and Hematocrit panel - Blood 2022-01-30 04:30:00 Test Item Value Reference Range Interpretation Comments hemoglobin (test code = hemoglobin) 8.7 g/dL 12-16 L hematocrit (test code = hematocrit) 26.4 % 37-47 L performing lab: (test code = performing lab:) [facility] 2022-01-30 04:30:00 Test Item Value Reference Range Interpretation Comments hemoglobin (test code = hemoglobin) 8.7 g/dL 12-16 L hematocrit (test code = hematocrit) 26.4 % 37-47 L performing lab: (test code = performing lab:) [facility] [id number] 06:17:00 Test Item Value Reference Range Interpretation Comments HEMOGLOBIN (test code = HGB) 8.3 g/dL 12-16 L HEMATOCRIT (test code = HCT) 24.7 % 37-47 L HGB [id number] 18:52:00 Test Item Value Reference Range Interpretation Comments HEMOGLOBIN (test code = 7.0 g/dL 10.2-14.9 L RESU LTS CALLED TO HGB) NURIS MORELAND RNREAD BACK & CONFIRME D? YBY [id number] 1852Results kwaku ified by repeat luz sis HEMATOCRIT (test code = 21.7 % 31.3-44.8 L Resu lts verified by HCT) repeat analysis HGB [id number] 18:52:00 Test Item Value Reference Range Interpretation Comments HEMOGLOBIN (test code = 7.0 g/dL 10.2-14.9 L RESU LTS CALLED TO HGB) NUIRS MORELAND RNREAD BACK & CONFIRME D? YBY [id number] 1852Results kwaku ified by repeat luz sis HEMATOCRIT (test code = 21.7 % 31.3-44.8 L Resu lts verified by HCT) repeat analysis - CT PELVIS W/O [id number] 16:50:00 [facility] : 1955 Sex: M Patient Name: EFRAIN CHAVEZ Unit No: [id number] EXAMS: CPT CODE: [id number] CT PELVIS W/O CONTRAST 51542 TECHNIQUE: Volumetric CT data of the pelvis was obtained without use of intravenous contrast. Images were then viewed in the axial, coronal and sagittal planes. CT radiation dose optimization is achieved for this examination by the use of a CT protocol in accordance with ACR practice standards and a dherence to prepper's recommendations. INDICATION: PERIPROSTHETIC FRACTURE COMPARISON: None. FINDINGS: Right total hip arthroplasty is demonstrated with an acute periprosthetic fracture of the right proximal femoral shaft, mildly comminuted. A prominent sagittally oriented fracture plane extends into the mid femoral shaft with distraction of approximately 11 mm. There is also adenopathy orientedminimally displaced fracture undermining the greater trochanter. The acetabulum is intact. IMPRESSION: Right hip arthroplasty with mildly comminuted periprosthetic femoral fracture as described. at 1650 Reported and signed by: Parish Reyes M.D. CC: Andre Bermudez DO; Tylor Flores MD Technologist: RT Safia(R) CTDI: DLP: Trnscrpt: 01/28/2022 (1650) tELADIOJ [facility] NAME: EFRAIN CHAVEZ [address] PHYS: Andre Jones DO : 1955 AGE: 66 SEX: M [place], [place] [address] LOC: YEndy A PHONE #: [phone] EXAM DATE: 01/27/2022 STATUS: ADM IN FAX #: [phone] RAD #: D/C DT PAGE 1 Signed Report Patient Name: EFRAIN CHAVEZ Unit No: [id number] EXAMS:CPT CODE: [id number] CT PELVIS W/O CONTRAST 44832 (Continued) Orig Print D/T: S: 01/28/2022 (1134) [facility] NAME: EFRAIN CHAVEZ [address] PHYS: EDDIE BermudezAndre : 1 04/08/1954 AGE: 66 SEX: M [place], [place] [address] LOC: YEndy A PHONE #: [phone] EXAM DATE: 01/27/2022 STATUS: ADM IN FAX #: [phone] RAD #: D/C DT PAGE 2 Signed ReportCBC W/MANUAL [id number] 07:05:00 Test Item Value Reference Range Interpretation Comments WHITE BLOOD CELL 13.7 K/mm3 4.5-11.2 H DONE AT: [facility] (test code = WBC) [facility] [address] [place] [address] RED BLOOD CELL (test 1.59 M/mm3 3.42-5.20 L code = RBC) HEMOGLOBIN (test 4.9 g/dL 10.2-14.9 LL RESULTS CICI LED TO code = HGB) DELILAH SOLORZANOREAD BACK & CONFIRME D? YESBY a.STF.TD 6 01/28/22 0625Results verified by repeat analysis HEMATOCRIT (test 16.3 % 31.3-44.8 LL RESULTS CICI LED TO code = HCT) DELILAH SOLORZANOREAD BACK & CONFIRME D? YESBY a.STF.TDC 6 01/28/22 0626Results verified by repeat analysis MEAN CELL VOLUME 102.5 fL 81-95 H (test code = MCV) MEAN CELL HGB (test 30.8 pg 27-34 code = MCH) MEAN CELL HGB 30.1 gm/dL 32-35 L CONCENTRATION (test code = MCHC) RED CELL 18.1 % 11.8-14.8 H DISTRIBUTION WIDTH (test code = RDW) PLT (test code = 357 K/mm3 135-380 PLT) MEAN PLATELET VOLUME 8.9 fL 9.1-12.7 L (test code = MPV) STAIN ACCEPTABILITY STAIN ACCEPTABLE See_Comment [Au tomated (test code = STN message] Th e ACCEPTABLE) system which generated this result transmitted reference range : (). The referen ce range was not used to interpr et this result as normal/abnormal . CELLS COUNTED (test 100 #CELLS See_Comment [Automa juaquin code = TCC) message] The system which generated this result transmitted reference range : (). The referen ce range was not used to interpr et this result as normal/abnormal . SEGMENTED 66 % 55-80 NEUTROPHILS (test code = SEG) LYMPHOCYTE (test 21 % 20-40 code = LYMPH) BAND NEUTROPHIL 1 % 0-5 (test code = BAND) MONOCYTE (test code 4 % 0-8 = MON) EOSINOPHIL (test 3 % 0-4 code = EOS) METAMYELOCYTE (test 2 % 0-0 H code = META) MYELOCYTE (test code 2 % 0-0 H = MYELO) NUCLEATED RED BLOOD 1 0-10 CELL (test code = NRBC) POLYCHROMASIA (test 2+ See_Comment [Automa juaquin code = POLC) message] The system which generated this result transmitted reference range : (). The referen ce range was not used to interpr et this result as normal/abnormal . HYPOCHROMIA (test 2+ See_Comment [Automate d code = HYPO) message] The system which generated this result transmitted reference range : (). The referen ce range was not used to interpr et this result as normal/abnormal . BASOPHILIC STIPPLING 2+ See_Comment [Autom ated (test code = STP) message] T he system which generated this result transmitted reference range : (). The referen ce range was not used to interpr et this result as normal/abnormal . ANISOCYTOSIS (test 1+ See_Comment [Automat ed code = ANISO) message] The system which generated this result transmitted reference range : (). The referen ce range was not used to interpr et this result as normal/abnormal . MICROCYTOSIS (test 1+ See_Comment [Automat ed code = MICR) message] The system which generated this result transmitted reference range : (). The referen ce range was not used to interpr et this result as normal/abnormal . PLATELET MORPHOLOGY NORMAL NORMAL (test code = PLTMORPH) WBC [id number] 07:04:00 Test Item Value Reference Range Interpretation Comments SEGMENTED NEUTROPHILS (test code = 66 % 55-80 N SEG) LYMPHOCYTE (test code = LYMPH) 21 % 20-40 N TOTAL CELLS COUNTED (test code = 100 #CELLS TCC) BAND NEUTROPHIL (test code = BAND) 1 % 0-5 N MONOCYTE (test code = MON) 4 % 0-8 N EOSINOPHIL (test code = EOS) 3 % 0-4 N METAMYELOCYTE (test code = META) 2 % 0-0 H MYELOCYTE (test code = MYELO) 2 % 0-0 H NUCLEATED RED BLOOD CELL (test 1 0-10 N code = NRBC) POLYCHROMASIA (test code = POLC) 2+ HYPOCHROMIA (test code = HYPO) 2+ BASOPHILIC STIPPLING (test code = 2+ STP) ANISOCYTOSIS (test code = ANISO) 1+ MICROCYTOSIS (test code = MICR) 1+ PLATELET ESTIMATE (test code = ADEQUATE ADEQ PLTEST) PLATELET MORPHOLOGY (test code = NORMAL NORMAL PLTMORPH) CBC W/O [id number] 07:04:00 Test Item Value Reference Range Interpretation Comments WHITE BLOOD CELL (test 13.7 K/mm3 4.5-11.2 H code = WBC) RED BLOOD CELL (test 1.59 M/mm3 3.42-5.20 L code = RBC) HEMOGLOBIN (test code = 4.9 g/dL 10.2-14.9 LL RESU LTS CALLED TO HGB) DELILAH SOLORZANO READ BACK & CONFIRME D? GERONIMO [facility]oviaAraceliCHOATE [facility] 6 01/28/22 0625Results verified by rep eat analysis HEMATOCRIT (test code = 16.3 % 31.3-44.8 LL RESU LTS CALLED TO HCT) DELILAH SOLORZANO READ BACK & CONFIRME D? GERONIMO [facility]CHO[facility] 6 01/28/22 0626Results verified by rep eat analysis MEAN CELL VOLUME (test 102.5 fL 81-95 H code = MCV) MEAN CELL HGB (test code 30.8 pg 27-34 N = MCH) MEAN CELL HGB 30.1 gm/dL 32-35 L CONCETRATION (test code = MCHC) RED CELL DISTRIBUTION 18.1 % 11.8-14.8 H WIDTH (test code = RDW) PLATELET COUNT (test 357 K/mm3 135-380 N code = PLT) MEAN PLATELET VOLUME 8.9 fL 9.1-12.7 L (test code = MPV) CBC W/AUTO [id number] 06:27:00 Test Item Value Reference Range Interpretation Comments WHITE BLOOD CELL (test 13.7 K/mm3 4.5-11.2 H DONE AT: [facility] code = WBC) [facility] [address] [facility] [place] [address] RED BLOOD CELL (test 1.59 M/mm3 3.42-5.20 L code = RBC) HEMOGLOBIN (test code = 4.9 g/dL 10.2-14.9 LL RESU LTS CALLED TO HGB) DELILAH SOLORZANO READ BACK & CONFIRME D? YESPARTH GrecoTD 6 01/28/22 0625Re sults verified by rep eat analysis HEMATOCRIT (test code = 16.3 % 31.3-44.8 LL RESU LTS CALLED TO HCT) DELILAH SOLORZANO READ BACK & CONFIRME D? GERONIMO GrecoTD 6 01/28/22 0626Re sults verified by rep eat analysis MEAN CELL VOLUME (test 102.5 fL 81-95 H code = MCV) MEAN CELL HGB (test 30.8 pg 27-34 code = MCH) MEAN CELL HGB 30.1 gm/dL 32-35 L CONCENTRATION (test code = MCHC) RED CELL DISTRIBUTION 18.1 % 11.8-14.8 H WIDTH (test code = RDW) PLT (test code = PLT) 357 K/mm3 135-380 MEAN PLATELET VOLUME 8.9 fL 9.1-12.7 L (test code = MPV) MANUAL DIFF REQUIRED YES See_Comment MANUAL DIFF (test code = MDIFF) REQUIRED . [Automated message] The sy stem which generated this result transmit juaquin reference range : (). The reference r yolanda was not used to interpret this result as normal/abnormal . CBC W/AUTO [id number] 06:27:00 Test Item Value Reference Range Interpretation Comments WHITE BLOOD CELL (test 13.7 K/mm3 4.5-11.2 H code = WBC) RED BLOOD CELL (test 1.59 M/mm3 3.42-5.20 L code = RBC) HEMOGLOBIN (test code = 4.9 g/dL 10.2-14.9 LL RESU LTS CALLED TO HGB) DELILAH SOLORZANO READ BACK & CONFIRME D? GERONIMO GrecoTD 6 01/28/22 0625Results verified by rep eat analysis HEMATOCRIT (test code = 16.3 % 31.3-44.8 LL RESU LTS CALLED TO HCT) DELILAH BECKETT-GLORIA READ BACK & CONFIRME D? GERONIMO MarkyKarmaCHOATE MEMORIAL [facility] 6 01/28/22 0626Results verified by rep eat analysis MEAN CELL VOLUME (test 102.5 fL 81-95 H code = MCV) MEAN CELL HGB (test code 30.8 pg 27-34 N = MCH) MEAN CELL HGB 30.1 gm/dL 32-35 L CONCETRATION (test code = MCHC) RED CELL DISTRIBUTION 18.1 % 11.8-14.8 H WIDTH (test code = RDW) PLATELET COUNT (test 357 K/mm3 135-380 N code = PLT) MEAN PLATELET VOLUME 8.9 fL 9.1-12.7 L (test code = MPV) MANUAL DIFF REQUIRED YES (test code = MDIFF) RBC MORPHOLOGY REQUIRED NORMAL (test code = RBCM) PLATELET MORPHOLOGY NORMAL REQUIRED (test code = PLTMR) PROTHROMBIN [id number] 20:32:00 Test Item Value Reference Range Interpretation Comments PROTHROMBIN TIME 11.7 secs 10.1-12.3 PATIENT (test code = PTP) INTERNATIONAL NORMAL 1.03 See_Comment The INR is to be used RATIO (test code = only for monitoring INR) oral anticoagulantth erapy. INDICATION INR VALUE 1. Prophylaxis including high risk surgery 2.0 - 2 .52. Deep venous thrombosis. Pul monary embolism. Atria l fibrillation or bioprosthetic h eart valves 2.0 - 3. 03. Mechanical hear t valves or recur rent systemic emboli sm. 3.0 - 3.5 [Automate d message] The sy stem which generated this result transmit juaquin reference range : (). The reference r yolanda was not used to interpret this result as normal/abnor mal. IS PATIENT ON ANTICOAGULANTS ? YTHROMBOPLASTIN TIME [id number] 20:32:00 Test Item Value Reference Range Interpretation Comments PTT ACTIVATED (test code = APTT) 32.9 secs 22-38 IS PATIENT ON ANTICOAGULANTS ? YPROTHROMBIN [id number] 20:32:00 Test Item Value Reference Range Interpretation Comments PROTHROMBIN TIME 11.7 secs 10.1-12.3 N PATIENT (test code = PTP) INTERNATIONAL NORMAL 1.03 The INR is to be used RATIO (test code = only for monitoring INR) oral anticoagulantth erapy. INDICATION INR VALUE 1. Prophylaxis including high risk surgery 2.0 - 2 .52. Deep venous thrombosis. Pul monary embolism. Atria l fibrillation or bioprosthetic h eart valves 2.0 - 3 .03. Mechanical hear t valves or recur rent systemic emboli sm. 3.0 - 3.5 IS PATIENT ON ANTICOAGULANTS ? YTHROMBOPLASTIN TIME [id number] 20:32:00 Test Item Value Reference Range Interpretation Comments THROMBOPLASTIN TIME PARTIAL (test 32.9 secs 22-38 N code = PTT) IS PATIENT ON ANTICOAGULANTS ? YBASIC METABOLIC [id number] 19:54:00 Test Item Value Reference Range Interpretation Comments SODIUM (test code = 139 mEq/L 135-145 NA) POTASSIUM (test code 4.8 mEq/L 3.5-5.0 = K) CHLORIDE (test code 104 mEq/L 100-115 = CL) CARBON DIOXIDE (test 25 mEq/L 22-31 code = CO2) GLUCOSE (test code = 126 mg/dL 65-110 H GLU) BLOOD UREA NITROGEN 22 mg/dL 7-18 H (test code = BUN) GLOMERULAR 94.2 >60 The Glomerular FILTRATION RATE Filtration R ate is a (test code = GFR) calculated parameterbased on serum Creatinine, pat ient age and sex. GFR va luesless than 60 mL/min/ 1.73 square meters a re indicative ofCh ronic Kidney Disease. Values less than 15 mL/min/1.73squa re meters indicate Kidney failure. The calculation forGFR is based on the CKD-EPI (2020) calculat ion. This formulais race indifferent and is the recommended for jean carlos for GFRby the Natio nal Kidney Foundati on for Adults.The GFR will not calculate if th e sex is unknown or if thepatient's ag e is <18 years.The Glome rular Filtration Rate is a calculated parameterbased on serum Creatinine, pat ient age and sex. GFR va luesless than 60 mL/min/ 1.73 square meters a re indicative ofCh ronic Kidney Disease. Values less than 15 mL/min/1.73squa re meters indicate Kidney failure. The calculation forGFR is based on the CKD-EPI (2020) calculat ion. This formulais race indifferent and is the recommended for jean carlos for GFRby the Nat nal Kidney Foundati on for Adults.The GFR will not calculate if th e sex is unknown or if thepatient's ag e is <18 years. CREATININE (test 0.9 mg/dL 0.7-1.3 code = CREAT) CALCIUM (test code = 8.1 mg/dL 8.4-10.2 L CA) BASIC METABOLIC [id number] 19:54:00 Test Item Value Reference Range Interpretation Comments SODIUM (test code = 139 mEq/L 135-145 N NA) POTASSIUM (test code 4.8 mEq/L 3.5-5.0 N = K) CHLORIDE (test code 104 mEq/L 100-115 N = CL) CARBON DIOXIDE (test 25 mEq/L 22-31 N code = CO2) GLUCOSE (test code = 126 mg/dL 65-110 H GLU) BLOOD UREA NITROGEN 22 mg/dL 7-18 H (test code = BUN) GLOMERULAR 94 ml/min >60 N The Glomerular FILTRATION RATE Filtration R ate is a (test code = GFR) calculated parameterbased on serum Creatinine, pat ient age and sex. GFR va luesless than 60 mL/min/ 1.73 square meters a re indicative ofCh ronic Kidney Disease. Values less than 15 mL/min/1.73squa re meters indicate Kidney failure. The calculation forGFR is based on the CKD-EPI (2020) calculat ion. This formulais race indifferent and is the recommended for jean carlos for GFRby the Nat nal Kidney Foundati on for Adults.The GFR will not calculate if th e sex is unknown or if thepatient's ag e is <18 years. CREATININE (test 0.9 mg/dL 0.7-1.3 N code = CREAT) CALCIUM (test code = 8.1 mg/dL 8.4-10.2 L CA) CBC W/O [id number] 17:42:00 Test Item Value Reference Range Interpretation Comments WHITE BLOOD CELL (test code = WBC) 12.8 K/mm3 5.7-10.5 H RED BLOOD CELL (test code = RBC) 2.41 M/mm3 4.2-5.4 L HEMOGLOBIN (test code = HGB) 7.5 g/dL 12-16 L HEMATOCRIT (test code = HCT) 24.0 % 37-47 L MEAN CELL VOLUME (test code = MCV) 100 fL 80-98 H MEAN CELL HGB (test code = MCH) 31.1 pg 27-34 N MEAN CELL HGB CONCENTRATION (test 31.3 g/dL 30.8-34.1 N code = MCHC) RED CELL DISTRIBUTION WIDTH (test 17.4 % 11-16 H code = RDW) PLT (test code = PLT) 370 K/mm3 130-400 N MEAN PLATELET VOLUME (test code = 8.9 fL 8.9-12.1 N MPV) HGB [id number] 05:55:00 Test Item Value Reference Range Interpretation Comments HEMOGLOBIN (test code = HGB) 7.9 g/dL 12-16 L HEMATOCRIT (test code = HCT) 23.4 % 37-47 L SPECIMEN COMMENT: POD #1Hemoglobin and Hematocrit panel - [id number] 04:00:00 Test Item Value Reference Range Interpretation Comments hemoglobin (test code = hemoglobin) 7.9 g/dL 12-16 L hematocrit (test code = hematocrit) 23.4 % 37-47 L performing lab: (test code = performing lab:) [facility] MedicineHemoglobin and Hematocrit panel - Blood 2022-01-19 04:00:00 Test Item Value Reference Range Interpretation Comments hemoglobin (test code = hemoglobin) 7.9 g/dL 12-16 L hematocrit (test code = hematocrit) 23.4 % 37-47 L performing lab: (test code = performing lab:) [facility] MedicineHemoglobin and Hematocrit panel - Blood 2022-01-19 04:00:00 Test Item Value Reference Range Interpretation Comments hemoglobin (test code = hemoglobin) 7.9 g/dL 12-16 L hematocrit (test code = hematocrit) 23.4 % 37-47 L performing lab: (test code = performing lab:) [facility] MedicineHemoglobin and Hematocrit panel - Blood 2022-01-19 04:00:00 Test Item Value Reference Range Interpretation Comments hemoglobin (test code = hemoglobin) 7.9 g/dL 12-16 L hematocrit (test code = hematocrit) 23.4 % 37-47 L performing lab: (test code = performing lab:) [facility]- XR PELVIS 1/2 [id number] 16:29:00 [facility] 1955 Sex: M Patient Name: EFRAIN CHAVEZ Unit No: [id number] EXAMS: CPT CODE: [id number] XR PELVIS 1/2 VIEWS 15501 INTRAOPERATIVE LEG LENGTH FILM COMMENT: COMPARISON: No prior exams available. In progress right hip replacement is noted. AP portable right hip COMMENT: The patient is status post joint replacement which is articulating normally. at 1629 Reported and signed by: El Liang MD CC: Tylor Flores MD Technologist: Dania Elizalde (R) Transcribed D/ (0863) PreciousJCL [facility] NAME: EFRAIN CHAVEZ [address] [facility] PHYS: MATVA.01 - Tylor Flores : 1955 AGE: 66 SEX: M [place], [place] [address] LOC: Y.315 A PHONE #: [phone] EXAM DATE: 01/18/2022 STATUS:ADM IN FAX #: [phone] RAD #: D/C DT PAGE 1 Signed Report Patient Name: EFRAIN CHAVEZ Unit No: [id number] EXAMS: CPT CODE: [id number] XR PELVIS 1/2 VIEWS 51391 (Continued) Orig Print D/T: S: 01/18/2022 (1632) [facility] NAME: EFRAIN CHAVEZ [address] [facility] PHYS: MATVA.Jenniffer -Tylor Flores : 1955 AGE: 66 SEX: [place] [address] LOC: Y.315 A PHONE #: [phone] EXAM DATE: 01/18/2022 STATUS: ADM IN FAX #: [phone] RAD #: D/C DT PAGE 2 Signed Report- XR PELVIS 1/2 [id number] 16:29:[address] : 1955 Sex: M Patient Name: EFRAIN CHAVEZ Unit No: [id number] EXAMS: CPT CODE: [id number] XR PELVIS 1/2 VIEWS 41205 INTRAOPERATIVE LEG LENGTH FILM COMMENT: COMPARISON: No prior exams available. In progress right hip replacement is noted. AP portable right hip COMMENT: The patient is status post joint replacement which is articulating normally. at 1629 Reported and signed by: El Liang MD CC: Tylor Flores MD Technologist: JENNA DAILEY ARRT Transcribed D/ (3172) tJUSTUSL [facility] NAME: EFRAIN CHAVEZ [address] [facility] PHYS: MATANA.Jenniffer - Tylor Flores : 1955 AGE: 66 SEX: [place] [address] LOC: Y.315 A PHONE #: [phone] EXAM DATE: 01/18/2022 STATUS: ADM IN FAX #: [phone] RAD #: D/C DT PAGE 1 Signed Report Patient Name: EFRAIN CHAVEZ Unit No:[id number] EXAMS: CPT CODE: [id number] XR PELVIS 1/2 VIEWS 26740 (Continued) Orig Print D/T: S: 01/18/2022 (1632) [facility] NAME: EFRAIN CHAVEZ [address] [facility] PHYS: MATANA.01 - Tylor Flores : 1955 AGE: 66 SEX: M [place], [place] [address] LOC: Y.315A PHONE #: [phone] EXAM DATE: 01/18/2022 STATUS: ADM IN FAX #: [phone] RAD #: D/C DT PAGE 2 Signed Report COMPREHENSIVE METABOLIC [id number] 16:18:00 Test Item Value Reference Range Interpretation Comments SODIUM (test code = 139 mmol/L 136-145 N NA) POTASSIUM (test code = 4.7 mmol/L 3.5-5.1 N K) CHLORIDE (test code = 102.0 mmol/L 98-107 N CL) CARBON DIOXIDE (test 26.2 mmol/L 21-32 N code = CO2) GLUCOSE (test code = 103 mg/dL 70-110 N GLU) BLOOD UREA NITROGEN 16 mg/dL 7-18 N (test code = BUN) GLOMERULAR FILTRATION 85.5 >60 Unit o f measure: RATE (test code = GFR) mL/mi n/1.73 d4Tlauibrqa Range:Healthy Adults >90 mL/min/1.73 m2 For Chronic Kidney Disease: Stage II Mild Decrease i n GFR 60-90 Stage III Moderate Decrea se in GFR 30-59 St age IV Severe Decre ase in GFR 15-29 St age V Kidney Failur e <15 CREATININE (test code 0.89 mg/dL 0.55-1.30 N = CREAT) TOTAL PROTEIN (test 7.5 g/dL 6.4-8.2 N code = PROT) ALBUMIN (test code = 4.2 g/dL 3.4-5.0 N ALB) GLOBULIN (test code = 3.3 g/dL 2.2-4.2 N GLOB) ALBUMIN/GLOBULIN RATIO 1.3 0.7-2.0 N (test code = A/G) CALCIUM (test code = 9.4 mg/dL 8.2-10.1 N CA) BILIRUBIN TOTAL (test 0.20 mg/dL 0.2-1.00 N code = BILT) SGOT/AST (test code = 22.0 U/L 15-37 N AST) SGPT/ALT (test code = 35.0 U/L 12-78 N Please note new ALT) normal range. ALKALINE PHOSPHATASE 70 U/L 46-116 N TOTAL (test code = ALKP) PROTHROMBIN [id number] 15:17:00 Test Item Value Reference Range Interpretation Comments PROTHROMBIN TIME 10.3 secs 9.7-12.5 N Please note new normal PATIENT (test code = range. PTP) INTERNATIONAL NORMAL 0.93 <2.0 RECOMME NDED THERAPEUTIC RATIO (test code = RANGE FOR ORAL INR) ANTICOAGULANTTR EATMENT: CONDITION INRPr ophylaxis of venous throm bosis in 2.0 - 3.0 high- risk medical or surg ical patientsTreatme nt of venous thrombos is 2.0 - 3.0Prevention o f embolism 2.0 - 3.0Prevention o f recurrent embol ism, or 3.0 - 4.5 patie nts with mechanical pros thetic intravascular v lundy IS PATIENT ON ANTICOAGULANTS ? YLIST ANTICOAGULANT/ANTI PLT MEDICATION : AspirinHas Lab been notified if Patient is on Heparin Drip? NOTHROMBOPLASTIN TIME [id number] 15:17:00 Test Item Value Reference Range Interpretation Comments PTT ACTIVATED (test 33.0 secs 26.6-34.6 N Please n ote new code = APTT) normal range. IS PATIENT ON ANTICOAGULANTS ? YLIST ANTICOAGULANT/ANTI PLT MEDICATION : AspirinHas Lab been notified if Patient is on Heparin Drip? NOCBC W/AUTO DIFF 2021-12-21 14:34:00 Test Item Value Reference Range Interpretation Comments WHITE BLOOD CELL (test code = WBC) 9.0 K/mm3 5.7-10.5 N RED BLOOD CELL (test code = RBC) 4.26 M/mm3 4.2-5.4 N HEMOGLOBIN (test code = HGB) 13.1 g/dL 12-16 N HEMATOCRIT (test code = HCT) 37.5 % 37-47 N MEAN CELL VOLUME (test code = MCV) 88 fL 80-98 N MEAN CELL HGB (test code = MCH) 30.8 pg 27-34 N MEAN CELL HGB CONCENTRATION (test 34.9 g/dL 30.8-34.1 H code = MCHC) RED CELL DISTRIBUTION WIDTH (test 13.3 % 11-16 N code = RDW) PLT (test code = PLT) 290 K/mm3 130-400 N MEAN PLATELET VOLUME (test code = 9.4 fL 8.9-12.1 N MPV) NEUTROPHIL % (test code = NT%) 62.1 % 45-70 N LYMPHOCYTE % (test code = LY%) 25.6 % 20-40 N MONOCYTE % (test code = MO%) 8.3 % 3-10 N EOSINOPHIL % (test code = EO%) 2.7 % 1-5 N BASOPHIL % (test code = BA%) 0.6 % 0.0-1.1 N NEUTROPHIL # (test code = NT#) 5.59 K/mm3 2.00-7.50 N LYMPHOCYTE # (test code = LY#) 2.30 K/mm3 1.50-4.00 N MONOCYTE # (test code = MO#) 0.75 K/mm3 0.2-0.8 N EOSINOPHIL # (test code = EO#) 0.24 K/mm3 0.04-0.4 N BASOPHIL # (test code = BA#) 0.05 K/mm3 0.02-0.10 N MANUAL DIFF REQUIRED (test code = NO MANUAL DIFF MDIFF) NUCLEATED RED BLOOD CELL (test 0 % 0-0 N code = NRBC) CBC W Auto Differential panel - [id number] 14:20:00 Test Item Value Reference Range Interpretation Comments white blood cell (test code = 9.0 K/mm3 5.7-10.5 white blood cell) red blood cell (test code = red 4.26 M/mm3 4.2-5.4 blood cell) hemoglobin (test code = 13.1 g/dL 12-16 hemoglobin) hematocrit (test code = 37.5 % 37-47 hematocrit) mean cell volume (test code = mean 88 fL 80-98 cell volume) mean cell HGB (test code = mean 30.8 pg 27-34 cell HGB) mean cell HGB concentration (test 34.9 g/dL 30.8-34.1 H code = mean cell HGB concentration) red cell distribution width (test 13.3 % 11-16 code = red cell distribution width) plt (test code = plt) 290 K/mm3 130-400 mean platelet volume (test code = 9.4 fL 8.9-12.1 mean platelet volume) neutrophil % (test code = 62.1 % 45-70 neutrophil %) lymphocyte % (test code = 25.6 % 20-40 lymphocyte %) monocyte % (test code = monocyte 8.3 % 3-10 %) eosinophil % (test code = 2.7 % 1-5 eosinophil %) basophil % (test code = basophil 0.6 % 0.0-1.1 %) neutrophil # (test code = 5.59 K/mm3 2.00-7.50 neutrophil #) lymphocyte # (test code = 2.30 K/mm3 1.50-4.00 lymphocyte #) monocyte # (test code = monocyte 0.75 K/mm3 0.2-0.8 #) eosinophil # (test code = 0.24 K/mm3 0.04-0.4 eosinophil #) basophil # (test code = basophil 0.05 K/mm3 0.02-0.10 #) manual diff required (test code = no manual diff manual diff required) nucleated red blood cell (test 0 % 0-0 code = nucleated red blood cell) performing lab: (test code = performing lab:) [facility]21[facility]-21 14:20:00 Test Item Value Reference Range Interpretation Comments prothrombin time patient (test code 10.3 secs 9.7-12.5 = prothrombin time patient) international normal ratio (test 0.93 <2.0 code = international normal ratio) performing lab: (test code = performing lab:) [facility] [id number] 14:20:00 Test Item Value Reference Range Interpretation Comments PTT activated (test code = PTT 33.0 secs 26.6-34.6 activated) performing lab: (test code = performing lab:) [facility] - Serum or [id number] 14:20:00 Test Item Value Reference Range Interpretation Comments sodium (test code = sodium) 139 mmol/L 136-145 potassium (test code = 4.7 mmol/L 3.5-5.1 potassium) chloride (test code = chloride) 102.0 mmol/L 98-107 carbon dioxide (test code = 26.2 mmol/L 21-32 carbon dioxide) glucose (test code = glucose) 103 mg/dL 70-110 blood urea nitrogen (test code = 16 mg/dL 7-18 blood urea nitrogen) glomerular filtration rate (test 85.5 >60 code = glomerular filtration rate) creatinine (test code = 0.89 mg/dL 0.55-1.30 creatinine) total protein (test code = total 7.5 g/dL 6.4-8.2 protein) albumin (test code = albumin) 4.2 g/dL 3.4-5.0 globulin (test code = globulin) 3.3 g/dL 2.2-4.2 albumin/globulin ratio (test 1.3 0.7-2.0 code = albumin/globulin ratio) calcium (test code = calcium) 9.4 mg/dL 8.2-10.1 bilirubin total (test code = 0.20 mg/dL 0.2-1.00 bilirubin total) SGOT/AST (test code = SGOT/AST) 22.0 U/L 15-37 SGPT/ALT (test code = SGPT/ALT) 35.0 U/L 12-78 alkaline phosphatase total (test 70 U/L 46-116 code = alkaline phosphatase total) performing lab: (test code = performing lab:) [facility]Pres[facility]] in Specimen by Organism specific [id number] 14:20:00 Test Item Value Reference Range Interpretation Comments MRSA surveillance screen (test code see below = MRSA surveillance screen) performing lab: (test code = performing lab:) [facility] [id number] 14:20:00 Test Item Value Reference Range Interpretation Comments mssa PCR surveillance screen (test see below code = mssa PCR surveillance screen) performing lab: (test code = performing lab:) [facility]/ Chol/HDL [id number] 00:00:00 Test Item Value Reference Range Interpretation Comments Cholesterol, Total 388 mg/dL See_Comment H [Automat ed message] (test code = 2093-3) The s tem which generated this result transmitted ref erence range: 100-199 mg/dL. The reference r yolanda was not used to interpret this result as normal/abnor mal. Triglycerides (test 409 mg/dL See_Comment H [Automa juaquin message] code = 2571-8) The system [facility] generated this result transmitted ref erence range: 0-149 mg /dL. The reference r yolanda was not used to interpret this result as normal/abnor mal. HDL Cholesterol (test 49 mg/dL See_Comment [Auto mated message] code = 2085-9) The system [facility] generated this result transmitted ref erence range: >39 mg/d L. The reference range was not used to int erpret this result as normal/abnormal . T. Chol/HDL Ratio (test 7.9 ratio See_Comment H [Au tomated message] code = 9830-1) The system [facility] generated this result transmitted ref erence range: 0.0-5.0 ratio. The reference r yolanda was not used to interpret this result as normal/abnor mal. Comp. Metabolic Panel (14) ([facility])2021-09-15 00:00:00 Test Item Value Reference Range Interpretation Comments Glucose (test code = 102 mg/dL See_Comment H [Autom ated message] 9225-7) The system [facility] [employer] generated this result transmitted ref erence range: 65-99 mg /dL. The reference r yolanda was not used to interpret this result as normal/abnor mal. BUN (test code = 16 mg/dL See_Comment [Automated message] 3094-0) The system [facility] generated this result transmitted ref erence range: 8-27 mg/ dL. The reference r yolanda was not used to interpret this result as normal/abnor mal. Creatinine (test code 0.88 mg/dL See_Comment [Auto mated message] = 2160-0) The system [facility] [employer] generated this result transmitted ref erence range: 0.76-1.2 7 mg/dL. The refe rence range was not u sed to interpret this result as normal/abnor mal. BUN/Creatinine Ratio 18 10-24 (test code = 3097-3) Sodium (test code = 139 mmol/L See_Comment [Automa juaquin message] 2951-2) The system [facility] generated this result transmitted ref erence range: 134-144 mmol/L. The ref erence range was not u sed to interpret this result as normal/abnor mal. Potassium (test code = 4.8 mmol/L See_Comment [Aut omated message] 2823-3) The system [facility] generated this result transmitted ref erence range: 3.5-5.2 mmol/L. The ref erence range was not u sed to interpret this result as normal/abnor mal. Chloride (test code = 100 mmol/L See_Comment [Auto mated message] 5-0) The system [facility] generated this result transmitted ref erence range: 96-106 m mol/L. The reference r yolanda was not used to interpret this result as normal/abnor mal. Carbon Dioxide, Total 24 mmol/L See_Comment [Auto mated message] (test code = 2027-) The s tem which generated this result transmitted ref erence range: 20-29 mm ol/L. The reference r yolanda was not used to interpret this result as normal/abnor mal. Calcium (test code = 9.9 mg/dL See_Comment [Autom ated message] 21173-2) The system [facility] generated this result transmitted ref erence range: 8.6-10.2 mg/dL. The refe rence range was not u sed to interpret this result as normal/abnor mal. Protein, Total (test 7.2 g/dL See_Comment [Autom ated message] code = 9295-2) The system [facility] generated this result transmitted ref erence range: 6.0-8.5 g/dL. The reference r yolanda was not used to interpret this result as normal/abnor mal. Albumin (test code = 4.9 g/dL See_Comment H [Autom ated message] 8551-7) The system [facility] generated this result transmitted ref erence range: 3.8-4.8 g/dL. The reference r yolanda was not used to interpret this result as normal/abnor mal. Globulin, Total (test 2.3 g/dL See_Comment [Auto mated message] code = 98002-3) The system [facility] generated this result transmitted ref erence range: 1.5-4.5 g/dL. The reference r yolanda was not used to interpret this result as normal/abnor mal. A/G Ratio (test code = 2.1 1.2-2.2 1759-0) Bilirubin, Total (test 0.3 mg/dL See_Comment [Aut omated message] code = 1975-2) The system [facility] generated this result transmitted ref erence range: 0.0-1.2 mg/dL. The reference r yolanda was not used to interpret this result as normal/abnor mal. Alkaline Phosphatase 79 IU/L See_Comment [Autom ated message] (test code = 6768-6) The sys tem which generated this result transmitted ref erence range: 44-121 I U/L. The reference r yolanda was not used to interpret this result as normal/abnor mal. AST (SGOT) (test code 31 IU/L See_Comment [Auto mated message] = 1920-8) The system [facility] generated this result transmitted ref erence range: 0-40 IU/ L. The reference range was not used to int erpret this result as normal/abnormal . ALT (SGPT) (test code 44 IU/L See_Comment [Auto mated message] = 1742-6) The system [facility] generated this result transmitted ref erence range: 0-44 IU/ L. The reference range was not used to int erpret this result as normal/abnormal . CBC With Differential/[id number] 00:00:00 Test Item Value Reference Range Interpretation Comments WBC (test code = 7.9 x10E3/uL See_Comment [Automated 4490-2) message] The sy stem which generated this result transmitted reference range : 3.4-10.8 x10E3/ uL. The reference r yolanda was not used to interpret this result as normal/abnormal . RBC (test code = 4.55 x10E6/uL See_Comment [Automate d 289-8) message] The sy stem which generated this result transmitted reference range : 4.14-5.80 x10E6 /uL. The reference r yolanda was not used to interpret this result as normal/abnormal . Hemoglobin (test code 13.6 g/dL See_Comment [Auto mated = 718-7) message] The sy stem which generated this result transmitted reference range : 13.0-17.7 g/dL. The reference range was not used to interpret this result as normal/abnormal . Hematocrit (test code 41.4 % See_Comment [Auto mated = 4544-3) message] The sy stem which generated this result transmitted reference range : 37.5-51.0 %. Th e reference range was not used to interpret this result as normal/abnormal . MCV (test code = 91 fL See_Comment [Automated 787-2) message] The sy stem which generated this result transmitted reference range : 79-97 fL. The reference range was not used to interpret this result as normal/abnormal . MCH (test code = 29.9 pg See_Comment [Automated 785-6) message] The sy stem which generated this result transmitted reference range : 26.6-33.0 pg. T he reference range was not used to interpret this result as normal/abnormal . MCHC (test code = 32.9 g/dL See_Comment [Automate d 786-4) message] The sy stem which generated this result transmitted reference range : 31.5-35.7 g/dL. The reference range was not used to interpret this result as normal/abnormal . RDW (test code = 13.1 % See_Comment [Automated 788-0) message] The sy stem which generated this result transmitted reference range : 11.6-15.4 %. Th e reference range was not used to interpret this result as normal/abnormal . Platelets (test code 303 x10E3/uL See_Comment [Autom ated = 777-3) message] The sy stem which generated this result transmitted reference range : 150-450 x10E3/u L. The reference r yolanda was not used to interpret this result as normal/abnormal . Neutrophils (test 57 % Not Estab. % code = 770-8) Lymphs (test code = 29 % Not Estab. % 736-9) Monocytes (test code 8 % Not Estab. % = 5905-5) Eos (test code = 4 % Not Estab. % 713-8) Basos (test code = 1 % Not Estab. % 706-2) Immature Cells (test code = UNLOINC) Neutrophils 4.6 x10E3/uL See_Comment [Automated (Absolute) (test code messag e] The system = 751-8) which generated this result transmitted reference range : 1.4-7.0 x10E3/u L. The reference r yolanda was not used to interpret this result as normal/abnormal . Lymphs (Absolute) 2.3 x10E3/uL See_Comment [Automate d (test code = 731-0) message] The system which generated this result transmitted reference range : 0.7-3.1 x10E3/u L. The reference r yolanda was not used to interpret this result as normal/abnormal . Monocytes(Absolute) 0.6 x10E3/uL See_Comment [Automa juaquin (test code = 742-7) message] The system which generated this result transmitted reference range : 0.1-0.9 x10E3/u L. The reference r yolanda was not used to interpret this result as normal/abnormal . Eos (Absolute) (test 0.3 x10E3/uL See_Comment [Autom ated code = 711-2) message] The s ystem which generated this result transmitted reference range : 0.0-0.4 x10E3/u L. The reference r yolanda was not used to interpret this result as normal/abnormal . Baso (Absolute) (test 0.0 x10E3/uL See_Comment [Auto mated code = 704-7) message] The s ystem which generated this result transmitted reference range : 0.0-0.2 x10E3/u L. The reference r yolanda was not used to interpret this result as normal/abnormal . Immature Granulocytes 1 % Not Estab. % (test code = 98485-9) Immature Grans (Abs) 0.1 x10E3/uL See_Comment [Autom ated (test code = 06458-6) messag e] The system which generated this result transmitted reference range : 0.0-0.1 x10E3/u L. The reference r yolanda was not used to interpret this result as normal/abnormal . NRBC (test code = 20530-3) Hematology Comments: (test code = 93080-0) MR, PELVIS, WITHOUT / WITH IV [id number] 11:27:00Unlisted Reason for Exam - Click Yes and Enter Reason Below->YesUnlisted Reason for Exam->elevated psaAnesthesia:->NoneDoes the patient have an implanted electronic device?->No [facility] CENTERName: EFRAIN CHAVEZ : 1955 Sex: MFINALREPORT TECHNIQUE: MRI of the prostate WITHOUT and WITH intravenous contrast. INDICATION: Unlisted Reason for Examelevated psa. COMPARISON: None. FINDINGS: PROSTATE: The prostate measures 3.6 x 2.5 x 4 cm (19 mL). There is diffuse, hazy decreased T2-weighted signal throughout the peripheral zone minimally restricted diffusion. SEMINAL VESICLES: Unremarkable. LYMPH NODES: No pelviclymphadenopathy. BLADDER: The bladder is thickened and trabeculated with a right lateral bladder diverticulum.RECTUM: Unremarkable. PERITONEUM/RETROPERITONEUM: No free fluid. BONES AND SOFT TISSUES: There is likely an old right femoral neck fracture with resorption of the femoral head. Moderate sized joint effusion. Small, mildly loculated left hydrocele. IMPRESSION: 1.The diffuse, hazy decreased T2-weighted signal and minimally restricted diffusion in the peripheral zone is most likely due to prostatitis. PI-RADS 2 2.There are likely old posttraumatic changes of the right hip with a moderate sizedjoint effusion and at least partial resorption of the femoral head. The right femur does not articulate with the right acetabulum and has mild superior displacement. Signed: Efrain Fritz MDReport Verified Date/Time: 08/01/2021 11:27:21 Reading Location: [address] Radiology Reading Room
[2022-03-26 00:09] LABS: Absolute Lymphocytes (CBC) 1.6 K/uL (0.7-4.9); Hematocrit 26.3 % (39.6-49.0); Lymphocytes % 18.2 % (15.3-44.8); MCV 88.9 fL (80-100); MPV 7.2 fL (7.6-11.3); RBC Red Blood Cell Count 2.96 M/uL (4.33-5.43)
[2022-03-26 00:13] LABS: Albumin 3.6 g/dL (3.4-5.0); Bilirubin Total 0.2 mg/dL (0.2-1.0); Potassium 4.9 mmol/L (3.5-5.1); Protein, Total 7.5 g/dL (6.4-8.2); Troponin High Sensitivity 4.8 pg/mL (<58.9)
--- NOTE | 2022-03-26 00:46 | ER ---
Nurse's Notes [facility] Name: Greg Scott Age: 67 yrs Sex: Male : 1955 Arrival Date: 03/25/2022 Time: 22:59 Bed 11 Private MD: Diagnosis: Edema to right lower extremity;UTI/ Urinary tract infection, site not specified Presentation: 03/25 23:17 Chief complaint: Patient states: Patient is post hip replacement, procedure done at the [facility] end of January 2022, noticed R leg swelling since last saturday. Coronavirus screen: Vaccine status: Patient reports receiving the 2nd dose of the covid vaccine. Ebola Screen: No symptoms or risks identified at this time. Initial Sepsis Screen: Does the patient meet any 2 criteria? HR > 90 bpm. Does the patient have a suspected source of infection? Yes: Dysuria/Frequency/Urgency/UTI. Risk Assessment: Do you want to hurt yourself or someone else? Patient reports no desire to harm self or others. Onset of symptoms was March 23, 2021. 23:17 Method Of Arrival: Wheelchair ke 23:17 Acuity: MIGDALIA 3 ke1 Triage Assessment: 23:20 General: Appears in no apparent distress. Behavior is appropriate for age. Pain: Denies 1 pain. Historical: - Allergies: 23:04 Sulfa (Sulfonamide Antibiotics); ke1 - PMHx: 23:04 CAD; Hypertension; Synovial Cyst on L5; ke1 - Social history:: Smoking status: Patient denies any tobacco usage or history of. - Family history:: not pertinent. Screenin:19 [facility] ED Fall Risk Assessment (Adult) History of falling in the last 3 months, ke1 including since admission. [facility] ED Fall Risk Assessment (Adult) History of falling in the last 3 months, including since admission No falls in past 3 months (0 pts) Confusion or Disorientation No (0 pts) Intoxicated or Sedated No (0 pts) Impaired Gait No (0 pts) Mobility Assist Device Used No (0 pt) Altered Elimination No (0 pt) Score/Fall Risk Level 0 - 2 = Low Risk Oriented to surroundings. Abuse screen: Denies threats or abuse. Nutritional screening: No deficits noted. Tuberculosis screening: No symptoms or risk factors identified. Assessment: 03/26 00:24 Reassessment: Patient appears in no apparent distress at this time. Patient and/or ke1 family updated on plan of care and expected duration. Pain level reassessed. Patient is alert, oriented x 3, equal unlabored respirations, skin warm/dry/pink. Vital Signs: 03/25 23:08 BP 144 / 84; Pulse 108; Resp 19; Temp 98.0; Pulse Ox 97% on R/A; Weight 83.91 kg; rv1 Height 5 ft. 8 in. (172.72 cm); 03/26 00:58 BP 118 / 56; Pulse 79; Resp 17; Temp 98.0; Pulse Ox 100% on R/A; Pain 0/10; ke1 03/25 23:08 Body Mass Index 28.13 (83.91 kg, 172.72 cm) rv1 ED Course: 03/25 22:59 Patient arrived in ED. ja2 22:59 Mundo Nair MD is Attending Physician. rt 23:04 Kyle Mcintosh RN is Primary Nurse. ke1 23:19 Triage completed. ke1 23:20 Arm band placed on left wrist. ke1 23:21 Bed in low position. Call light in reach. Side rails up X 1. ke1 23:34 Inserted saline lock: 20 gauge in left antecubital area, using aseptic technique. ke1 23:34 BNP Sent. ke1 23:34 CBC with Diff Sent. ke1 23:34 CMP Sent. ke1 23:34 Troponin High Sensitivity Sent. ke1 23:43 Chest Single View XRAY In Process Unspecified. EDMS 23:43 Hip Right 2 View XRAY In Process Unspecified. EDMS 03/26 00:11 Extremity Venous Uni Ltd US In Process Unspecified. EDMS 00:59 No provider procedures requiring assistance completed. IV discontinued. ke1 Administered Medications: No medications were administered Medication: 00:59 VIS not applicable for this client. ke1 Outcome: 00:45 Discharge ordered by . rt 01:08 Patient left the ED. ke1 Signatures: Dispatcher [employer] EDMS Jolly Major 2 Kyle Mcintosh RN RN ke1 Mundo Nair MD MD rt Julianne Cristobal rv1
--- NOTE | 2022-03-26 00:46 | EDPHYS ---
Physician Documentation [facility] Name: Greg Scott Age: 67 yrs Sex: Male : 1955 Arrival Date: 03/25/2022 Time: 22:59 Bed 11 Private MD: ED Physician Mundo Nair HPI: 03/25 23:28 This 67 yrs old Male presents to ER via Wheelchair with complaints of Urinary Problem, rt Leg Swelling. 23:28 The patient or guardian reports swelling. And is 8 weeks post total hip replacement on rt the right side. The patient states that over the past 2 days, he has had an intermittent swelling to the leg, states that has come down somewhat, but is still swollen. It appears to be at the thigh. Denies redness or skin changes. The patient does not have sensation to that leg from a prior injury. States that he does not know if there is pain or not. The patient has other complaints stating that he gets frequent UTIs, is on Bactrim suppressive therapy but was recently found to have a UTI that was resistant to Bactrim, prescribed nitrofurantoin but states he was allergic to that so did not start this medication. The patient also states that about 2 days ago, he had shortness of breath and a mild chest pain that is since resolved. The patient denies any shortness of breath at this time. Symptoms are moderate in severity, no other aggravating or alleviating factors. Of note, the patient has his follow-up appointment with his orthopedic surgeon on Saturday.. Historical: - Allergies: 23:04 Sulfa (Sulfonamide Antibiotics); ke1 - PMHx: 23:04 CAD; Hypertension; Synovial Cyst on L5; ke1 - Social history:: Smoking status: Patient denies any tobacco usage or history of. - Family history:: not pertinent. ROS: 23:28 Constitutional: Negative for fever, chills, and weight loss, Skin: Negative for injury, rt rash, and discoloration, Neuro: Negative for headache, weakness, numbness, tingling, and seizure. 23:28 Cardiovascular: Positive for Reports resolved chest pain. 23:28 Respiratory: Positive for Reports resolved dyspnea, denies cough. 23:28 : Positive for reports current UTI. 23:28 MS/extremity: Positive for Reports right lower extremity swelling, denies skin changes. Exam: 23:28 Constitutional: This is a well developed, well nourished patient who is awake, alert, rt and in no acute distress. Head/Face: Normocephalic, atraumatic. Chest/axilla: Normal chest wall appearance and motion. Nontender with no deformity. No lesions are appreciated. Cardiovascular: Regular rate and rhythm with a normal S1 and S2. No gallops, murmurs, or rubs. Normal PMI, no JVD. No pulse deficits. Respiratory: Lungs have equal breath sounds bilaterally, clear to auscultation and percussion. No rales, rhonchi or wheezes noted. No increased work of breathing, no retractions or nasal flaring. Abdomen/GI: Soft, non-tender, with normal bowel sounds. No distension or tympany. No guarding or rebound. No evidence of tenderness throughout. Skin: Warm, dry with normal turgor. Normal color with no rashes, no lesions, and no evidence of cellulitis. Neuro: Awake and alert, GCS 15, oriented to person, place, time, and situation. Cranial nerves II-XII grossly intact. Motor strength 5/5 in all extremities. Sensory grossly intact. Cerebellar exam normal. Normal gait. Psych: Awake, alert, with orientation to person, place and time. Behavior, mood, and affect are within normal limits. 23:28 Musculoskeletal/extremity: Edema noted to the right thigh, the surgical incision appears to be clean dry and intact without evidence of surgical site infection, pulses, motor, sensation intact. 23:35 ECG was reviewed by the Attending Physician. rt Vital Signs: 23:08 BP 144 / 84; Pulse 108; Resp 19; Temp 98.0; Pulse Ox 97% on R/A; Weight 83.91 kg; rv1 Height 5 ft. 8 in. (172.72 cm); 03/26 00:58 BP 118 / 56; Pulse 79; Resp 17; Temp 98.0; Pulse Ox 100% on R/A; Pain 0/10; ke1 03/25 23:08 Body Mass Index 28.13 (83.91 kg, 172.72 cm) rv1 MDM: 03/25 23:02 Patient medically screened. rt 03/26 00:52 Differential diagnosis: Postoperative complication, infection, DVT, UTI, pneumonia, rt pneumothorax, pulmonary embolism, congestive heart failure. Data reviewed: vital signs, nurses notes, lab test result(s), EKG, radiologic studies. Independent interpretation of the following test(s) in the Emergency Department X-Ray: My interpretation is Hardware visualized without complications. Test considered but Not performed: Other Details CT angiogram was considered to rule out pulmonary embolism, however, the patient is no longer short of breath, has no DVT on the ultrasound. Believe that there is a very low pretest probability, not indicated at this time.. Care significantly affected by the following chronic conditions: Recent hip replacement. ED course: Change patient's nitrofurantoin that he does not tolerate to Levaquin as the E. coli is sensitive to Levaquin. Patient to follow-up with orthopedics on Saturday as well as follow-up with his urologist.. 03/25 23:18 Order name: Troponin High Sensitivity; Complete Time: 00:30 rt 03/25 23:18 Order name: CBC with Diff; Complete Time: 00:30 rt 03/25 23:18 Order name: CMP; Complete Time: 00:30 rt 03/25 23:18 Order name: BNP; Complete Time: 00:30 rt 03/25 23:18 Order name: Chest Single View XRAY rt 03/25 23:18 Order name: Hip Right 2 View XRAY rt 03/25 23:18 Order name: EKG; Complete Time: 23:18 rt 03/25 23:18 Order name: EKG - Nurse/Tech; Complete Time: 23:34 rt 03/25 23:18 Order name: Extremity Venous Uni Ltd US rt EC/22 23:35 Rate is 83 beats/min. Rhythm is regular, Normal Sinus Rhythm with No ectopy. QRS [place] rt is Normal. NM interval is normal. QRS interval is normal. QT interval is normal. No Q waves. T waves are Normal. No ST changes noted. Interpreted by me. Administered Medications: No medications were administered Disposition Summary: 03/26/22 00:45 Discharge Ordered Location: Home rt Problem: an ongoing problem rt Symptoms: are unchanged rt Condition: Stable rt Diagnosis - Edema to right lower extremity rt - UTI/ Urinary tract infection, site not specified rt Followup: rt - With: Private Physician - When: 2 - 3 days - Reason: Discharge Instructions: - Discharge Summary Sheet rt - Urinary Tract Infection, Adult rt - Peripheral Edema rt Forms: - Medication Reconciliation Form rt - Thank You Letter rt - Antibiotic Education rt - Prescription Opioid Use rt Prescriptions: - levofloxacin 500 mg Oral Tablet - take 1 tablet by ORAL route once daily for 5 days; 5 tablet; Refills: 0, rt Product Selection Permitted Signatures: Dispatcher [employer] Kyle Bernard RN RN ke1 Mundo Nair MD MD rt
[2022-03-26 01:18] VITALS: TEMP 98
[2022-03-26 01:20] VITALS: BP 118/56; O2SAT 100
--- NOTE | 2022-03-26 16:50 | EKG ---
Test Date: 2022-03-25 Test Time: 23:30:38 Management Consulting: GUILLERMINA MEASUREMENT RESULTS: Intervals: Rate: 83 MO: 142 QRSD: 78 QT: 338 QTc: 397 [place]: P: 59 MO: 142 QRS: 9 T: 24 INTERPRETIVE STATEMENTS: Normal sinus rhythm Normal ECG Compared to ECG 04/10/2020 21:52:39 Sinus bradycardia no longer present ST (T wave) deviation no longer present Electronically Signed On 03-26-22 16:49:51 AUTOMOTIVE SERVICE WRITER by Robert Dolan
--- NOTE | 2022-03-26 16:54 | RAD REPORT ---
EXAM DESCRIPTION: Extremity Venous Uni Ltd CLINICAL HISTORY: 67 years Male SWELLING Extremity Venous Uni Ltd TECHNIQUE: Real-time Duplex ultrasound of the right lower extremity veins with 2-D rogel scale, color Doppler flow, and spectral waveform analysis. COMPARISON: No prior exams provided for comparison. FINDINGS: No DVT. The visualized right common femoral, femoral, popliteal, and posterior tibial ve ins are patent without thrombus. Normal compressibility, augmentation response, and Doppler waveforms . The visualized saphenofemoral junction is patent without thrombus. No visualized popliteal cyst. IMPRESSION: No right lower extremity DVT. Electronically signed by: Aneta Ponce MD 03/26/2022 12:14 AM HEALTH RECORD TECHNICIAN Due to temporary technical issues with the PACS/Fluency reporting system, reports are being signed by the in house radiologists without review as a courtesy to insure prompt reporting. The interpreting radiologist is fully responsible for the content of the report
--- NOTE | 2022-03-26 18:09 | RAD REPORT ---
EXAM DESCRIPTION: Chest Single View 03/25/2022 11:56 PM PUBLIC SPEAKER CLINICAL HISTORY: 67 years, Male, DYSPNEA COMPARISON: None FINDINGS: Single view of the chest was obtained portable. No prior films are available for compariso n. The cardiomediastinal silhouette demonstrate to be unremarkable. The heart is not enlarged. The th oracic aorta is unremarkable. The pulmonary vasculature is normal distribution. Costophrenic angles a re sharp. No areas of consolidation or masses are seen. External EKG leads within the field-of-vi ew limits diagnosis. The rest of the soft tissue and bony structures demonstrate to be unremarkable. IMPRESSION: NO ACUTE CARDIOPULMONARY DISEASE SEEN. Electronically signed by: Anthony Laurent MD 03/25/2022 11:56 PM PUBLIC SPEAKER Due to temporary technical issues with the PACS/Fluency reporting system, reports are being signed by the in house radiologists without review as a courtesy to insure prompt reporting. The interpreting radiologist is fully responsible for the content of the report
--- NOTE | 2022-03-26 18:17 | RAD REPORT ---
EXAM DESCRIPTION: Hip Right 2 View CLINICAL HISTORY: Post op swelling Hip Right 2 View COMPARISON: None. TECHNIQUE: XR HIP 2 OR MORE VIEWS 03/25/2022 11:18 PM ORNAMENTAL IRON WORKER HELPER FINDINGS: There is no fracture. Total right hip arthroplasty was performed. Soft tissues are unremar kable. IMPRESSION: Expected postoperative appearance. Electronically signed by: Nura Landry MD 03/25/2022 11:56 PM ORNAMENTAL IRON WORKER HELPER Due to temporary technical issues with the PACS/Fluency reporting system, reports are being signed by the in house radiologists without review as a courtesy to insure prompt reporting. The interpreting radiologist is fully responsible for the content of the report
== END 2022-03-26 01:08 | disposition home or self-care (01) ==
LOC: ER 22:53
DX: R60.0 Localized edema (principal); N39.0 Urinary tract infection, site not specified; I10 Essential (primary) hypertension; Z88.2 Allergy status to sulfonamides; Z96.641 Presence of right artificial hip joint
CPT/HCPCS: 36415; 71045; 80053; 83880; 84484; 85025; 93005; 93971; 99283

== ENCOUNTER 2024-10-29 08:15 | Emergency (ER) | payer OTHER ==
[2024-10-29] MEDS ORDERED: NA CHLORIDE 0.9% 1,000 ML ONE (08:32)
[2024-10-29 09:08] LABS: Absolute Lymphocytes (CBC) 1.2 K/uL (0.7-4.9); Hematocrit 39.9 % (39.6-49.0); Hemoglobin 13.4 g/dL (13.6-17.9); MCH 29.2 pg (27.0-35.0); MCHC 33.7 g/dL (32.0-36.0); MCV 86.8 fL (80-100); MPV 8.1 fL (7.6-11.3); Nucleated RBC Absolute Count 0.0 (0-0); Nucleated Red Blood Cells % 0.0 % (0-0); RBC Red Blood Cell Count 4.59 M/uL (4.33-5.43); White Blood Count 8.50 thou/uL (4.3-10.9)
[2024-10-29 09:13] LABS: PT Prothrombin Time 12.5 SECONDS (10-13.0); PTT, Activated Partial Thromb 32.7 SECONDS (27.2-37.4); Protime INR 1.11
[2024-10-29 09:27] LABS: ALT/SGPT 32.0 U/L (16-61); Albumin 3.7 g/dL (3.4-5.0); Albumin/Globulin Ratio 1.0 (1.1-1.8); Alkaline Phosphatase 77.0 U/L (45-117); Anion Gap 10.8 mEq/L (5.0-15.0); BUN Blood Urea Nitrogen 33.0 mg/dL (7-18); Globulin 3.8 g/dL (2.3-3.5); Glucose Level 132.0 mg/dL (74-106); Troponin High Sensitivity 5.7 pg/mL (<58.9)
[2024-10-29 09:28] LABS: AST/SGOT 12.0 U/L (15-37); Magnesium 2.3 mg/dL (1.6-2.4); Potassium 4.8 mEq/L (3.5-5.1)
--- NOTE | 2024-10-29 09:52 | RAD REPORT ---
EXAM: CT Head Brain Wo Cont HISTORY: SYNCOPE COMPARISON: 04/10/2020 TECHNIQUE: Multiple contiguous axial images were obtained for a CT of the brain without contrast. Sag ittal and coronal reformats were performed. One or more of the following dose reduction techniques were used: Automated exposure control, adjus tment of the mA and kV according to patient size, and iterative reconstruction. Unless otherwise specified, incidental findings do not require dedicated imaging follow-up. FINDINGS: No evidence of hydrocephalus, intracranial hemorrhage, or extra-axial fluid collection. The brain is normal in morphology. The calvarium is intact. The visualized paranasal sinuses and mastoid air cells are essentially clear . IMPRESSION: No evidence of acute intracranial abnormality.
--- NOTE | 2024-10-29 09:58 | RAD REPORT ---
EXAMINATION: ONE VIEW CHEST XR CLINICAL INDICATION: Male, 69 years old.,Syncope TECHNIQUE: Frontal chest projection is submitted. Examination is limited by patient positioning and t echnique. COMPARISON: 03/25/2022 FINDINGS: The lungs are well inflated and clear. No pneumothorax or sizable effusion. The heart is normal in s ize. Mediastinal contours are unremarkable. IMPRESSION: No acute intrathoracic abnormalities.
[2024-10-29 10:56] LABS: Urine Microscopic Reflex YN ORDER UMIC
[2024-10-29 10:57] LABS: Sqamous Epithelial <5 /HPF (None Seen); Urine Culture Reflex Order NOT NEEDED
--- NOTE | 2024-10-29 11:03 | EDPHYS ---
Physician Documentation [facility] Name: Greg Scott Age: 69 yrs Sex: Male : 1955 Arrival Date: 10/29/2024 Time: 08:15 Bed 17 Private MD: ED Physician Marquis Woo HPI: 10/29 08:35 This 69 yrs old Male presents to ER via Ambulatory with complaints of Passed dr5 Out Prior To Arrival. 08:35 The patient has experienced syncope, became unresponsive. Onset: The symptoms/episode dr5 began/occurred acutely. Patient is a 69-year-old male with history of hypertension and glaucoma coming in with syncope that lasted less than 30 seconds after standing up quickly and walking to the bathroom. Patient reports that he stood up to walk to the bathroom was washing his face and became lightheaded and fell forward. was next to him and guided him down to where he did not hit his head. Patient denies being on blood thinners. Patient denies any headache, dizziness, pain, chest pain, shortness of breath, nausea, vomiting or diarrhea. Patient denies any recent illness. Historical: - Allergies: 08:36 PENICILLINS; dr5 08:36 STATINS HMG COA REDUCTASE INHIBITORS; dr5 08:36 Sulfa (Sulfonamide Antibiotics); dr5 08:36 Wheat/glutens; dr5 - PMHx: 08:36 CAD; Hypertension; Synovial Cyst on L5; dr5 - PSHx: 08:36 back surgery; Hip replacement. right x2; skin grafts; dr5 - Immunization history:: Adult Immunizations up to date. - Infectious Disease History:: Denies. - Social history:: Smoking status: Patient denies any tobacco usage or history of. ROS: 08:36 Constitutional: as per hpi dr5 Exam: 08:36 Abdomen/GI: Exam negative for acute changes, dr5 08:36 Constitutional: This is a well developed, well nourished patient who is awake, alert, and in no acute distress. Head/Face: Normocephalic, atraumatic. Eyes: Pupils equal round and reactive to light, extra-ocular motions intact. Lids and lashes normal. Conjunctiva and sclera are non-icteric and not injected. Cornea within normal limits. Periorbital areas with no swelling, redness, or edema. Neck: Trachea midline, no thyromegaly or masses palpated, and no cervical lymphadenopathy. Supple, full range of motion without nuchal rigidity, or vertebral point tenderness. No Meningismus. Chest/axilla: Normal chest wall appearance and motion. Nontender with no deformity. No lesions are appreciated. Cardiovascular: Regular rate and rhythm with a normal S1 and S2. Normal PMI, no JVD. No pulse deficits. Respiratory: Lungs have equal breath sounds bilaterally, clear to auscultation. No rales, rhonchi or wheezes noted. No increased work of breathing, no retractions or nasal flaring. Abdomen/GI: Soft, non-tender, non-distended Back: No spinal tenderness. No costovertebral tenderness. Full range of motion. Skin: Warm, dry with normal turgor. Normal color with no rashes, no lesions, and no evidence of cellulitis. MS/ Extremity: Pulses equal, no cyanosis. Neurovascular intact. Full, normal range of motion. Neuro: Awake and alert, GCS 15, oriented to person, place, time, and situation. Cranial nerves II-XII grossly intact. Motor strength 5/5 in all extremities. Sensory grossly intact. Cerebellar exam normal. Normal gait. Vital Signs: 08:30 BP 133 / 71; Pulse 63; Resp 15; Temp 97; Pulse Ox 97% on R/A; Weight 83.01 kg; Height 5 hb ft. 9 in. ; Pain 0/10; 09:34 BP 115 / 62; Pulse 57; Resp 16; Pulse Ox 99% on R/A; hb 08:30 Body Mass Index 27.02 (83.01 kg, 175.26 cm) hb 08:30 Pain Scale: Adult hb MDM: 08:21 Medical Screening Exam initiated dr5 10:06 Differential Diagnosis: cardiac arrhythmia, idiopathic syncope, vasovagal episode, dr5 Anemia, Electrolyte Abnormality, UTI, ICH, Elevated Troponin. 11:05 Data reviewed: vital signs, nurses notes, lab test result(s), cardiac enzymes, troponin dr5 i, CBC, white blood cell count, hemoglobin, hematocrit, platelets, electrolytes, sodium, potassium, chloride, serum bicarbonate, BUN, creatinine, serum glucose, urinalysis, EKG, radiologic studies, CT scan, plain films. Consideration of Admission/Observation Escalation of care including admission/observation considered. Admission considered patient did not start to feel better, found to have intracranial hemorrhage, or electrolyte abnormality/elevated troponin. I considered the following discharge prescriptions or medication management in the emergency department I discussed and recommended Over The Counter medications, Medications were administered in the Emergency Department. See MAR. Independent interpretation of the following test(s) in the Emergency Department X-Ray: My interpretation is Independent rotation of x-ray does not reveal pneumonia. Historians other than the Patient: Spouse/Significant Other: at bedside. Care significantly affected by the following chronic conditions: Hypertension, Coronary artery disease. Care significantly affected by the following Social Determinants of Health: Poor access to healthcare and/or lack of insurance, Poor access to transportation, Problems related to employment. Counseling: I had a detailed discussion with the patient and/or guardian regarding the historical points, exam findings, and any diagnostic results supporting the discharge/admit diagnosis, the presence of at least one elevated blood pressure reading (>120/80) during this emergency department visit, lab results, radiology results, the need for outpatient follow up, for definitive care, a family practitioner, to return to the emergency department if symptoms worsen or persist or if there are any questions or concerns that arise at home. Medication response: Normal saline. Response to treatment: the patient's symptoms have markedly improved after treatment. Special discussion: Based on the patient's history, exam and DX evaluation, there is no indication for emergent intervention or inpatient TX. It is understood by the patient/guardian that if the SXs persist or worsen they need to return immediately for re-evaluation. I discussed with the patient/guardian in detail that at this point there is no indication for admission to the hospital. It is understood, however, that if the symptoms persist or worsen the patient needs to return immediately for re-evaluation. Based on the history and exam findings, there is no indication for further emergent testing or inpatient evaluation. I discussed with the patient/guardian the need to see the primary care provider for further evaluation of the symptoms. ED course: Normal saline given in ER with resolution of symptoms. Patient reports he is feeling better. All labs, chest x-ray, CT scan printed and given to patient to take with him to primary care doctor. All questions are. Strict ER precautions given. Patient and are agreeable to plan. 10/29 08:38 Order name: CBC with Diff; Complete Time: 09:17 dr5 10/29 08:38 Order name: Magnesium; Complete Time: 09:34 dr5 10/29 08:38 Order name: Protime (+inr); Complete Time: 09:17 [facility] 10/29 08:38 Order name: Ptt, Activated; Complete Time: 09:17 [facility] 10/29 08:38 Order name: Troponin High Sensitivity; Complete Time: 09:34 [facility] 10/29 08:38 Order name: CMP; Complete Time: 09:34 [facility] 10/29 10:16 Order name: UA Rfx Darin Cult if indicated; Complete Time: 10:58 [facility] 10/29 08:38 Order name: CT Head Brain wo Cont; Complete Time: 09:53 [facility] 10/29 08:38 Order name: Chest Single View XRAY; Complete Time: 10:06 [facility] 10/29 08:38 Order name: EKG; Complete Time: 08:39 [facility] 10/29 08:38 Order name: Cardiac monitoring; Complete Time: 08:39 [facility] 10/29 08:38 Order name: EKG - Nurse/Tech; Complete Time: 08:39 [facility] 10/29 08:38 Order name: IV Saline Lock; Complete Time: 08:46 [facility] 10/29 08:38 Order name: Labs collected and sent; Complete Time: 08:46 [facility] 10/29 08:38 Order name: NPO; Complete Time: 08:39 [facility] 10/29 08:38 Order name: O2 Per Protocol; Complete Time: 08:39 [facility] 10/29 08:38 Order name: O2 Sat Monitoring; Complete Time: 08:39 dr5 EC:35 Rate is 60 beats/min. Rhythm is regular. QRS [place] is Normal. CA interval is normal at dr5 150 msec. QRS interval is normal at 90 msec. QT interval is normal at 440 msec. Clinical impression: Normal ECG, Abnormal EKG without significant change, and No evidence of ischemia. Administered Medications: 09:14 Drug: NS 0.9% IV 1000 ml IV at 1000 ml once; to be given as a bolus over 60 minutes hb Route: IV; Rate: 1000 ml; Site: right forearm; Disposition Summary: 10/29/24 11:03 Discharge Ordered Notes: Location: Home dr5 Condition: Stable dr5 Diagnosis - Syncope Near - Syncopal Episode dr5 Followup: dr5 - With: Emergency Department - When: As needed - Reason: Worsening of condition Followup: dr5 - With: Private Physician - When: 1 - 2 days - Reason: Recheck today's complaints, Continuance of care, Re-evaluation by your physician Discharge Instructions: - Discharge Summary Sheet dr5 - Syncope dr5 Forms: - Medication Reconciliation Form dr5 - Patient Portal Instructions dr5 - Leadership Thank You Letter dr5 Addendum: 10/30/2024 13:30 Co-signature as Attending Physician, Marquis Woo MD I agree with the assessment and c barnes plan of care. Signatures: Dispatcher [employer] EDMS Marquis Woo MD MD cha Baxter, Heather, GLORIA RN Gildardo Rodriguez, THERMOFORMING MACHINE OPERATOR-C THERMOFORMING MACHINE OPERATOR-Cdr5 Corrections: (The following items were deleted from the chart) 10/29 08:39 08:38 CBC+H.LAB.BRZ ordered. EDMS EDMS 08:39 08:38 MAGNESIUM+C.LAB.BRZ ordered. EDMS EDMS 08:39 08:38 PROTIME (+INR)+COAG.LAB.BRZ ordered. EDMS EDMS 08:39 08:38 PTT, ACTIVATED+COAG.LAB.BRZ ordered. EDMS EDMS 08:39 08:38 Troponin High Sensitivity+C.LAB.BRZ ordered. EDMS EDMS 08:39 08:38 COMPREHENSIVE METABOLIC PANEL+C.LAB.BRZ ordered. EDMS EDMS
--- NOTE | 2024-10-29 11:03 | ER ---
Nurse's Notes [facility] Name: Greg Scott Age: 69 yrs Sex: Male : 1955 Arrival Date: 10/29/2024 Time: 08:15 Bed 17 Private MD: Diagnosis: Syncope Near-Syncopal Episode Presentation: 10/29 08:30 Chief complaint: Syncopal episode just prior to arrival, caught him and lowered to hb the floor, was out approx 30 seconds. Denies injury/pain. Coronavirus screen: At this time, the client does not indicate any symptoms associated with coronavirus-19. Ebola Screen: No symptoms or risks identified at this time. Initial Sepsis Screen: Does the patient meet any 2 criteria? No. Patient's initial sepsis screen is negative. Does the patient have a suspected source of infection? No. Patient's initial sepsis screen is negative. Risk Assessment: Do you want to hurt yourself or someone else? Patient reports no desire to harm self or others. Onset of symptoms was October 29, 2024. 08:30 Method Of Arrival: Ambulatory 08:30 Acuity: MIGDALIA 3 Triage Assessment: 08:44 General: Appears in no apparent distress. Behavior is calm, cooperative. Pain: Denies hb pain. EENT: No signs and/or symptoms were reported regarding the EENT system. Neuro: Level of Consciousness is awake, alert, obeys commands, Oriented to person, place, time, situation. Cardiovascular: Patient's skin is warm and dry. Rhythm is regular. Respiratory: Respiratory effort is even, unlabored, Respiratory pattern is regular, symmetrical. GI: No signs and/or symptoms were reported involving the gastrointestinal system. : No signs and/or symptoms were reported regarding the genitourinary system. Derm: Skin is pink, warm \T\ dry. Musculoskeletal: No signs and/or symptoms reported regarding the musculoskeletal system. Historical: - Allergies: 08:36 PENICILLINS; dr5 08:36 STATINS HMG COA REDUCTASE INHIBITORS; dr5 08:36 Sulfa (Sulfonamide Antibiotics); dr5 08:36 Wheat/glutens; dr5 - PMHx: 08:36 CAD; Hypertension; Synovial Cyst on L5; dr5 - PSHx: 08:36 back surgery; Hip replacement. right x2; skin grafts; dr5 - Immunization history:: Adult Immunizations up to date. - Infectious Disease History:: Denies. - Social history:: Smoking status: Patient denies any tobacco usage or history of. Screenin:45 [facility] ED Fall Risk Assessment (Adult) History of falling in the last 3 months, hb including since admission Yes- physiologic fall (2 pts) Confusion or Disorientation No (0 pts) Intoxicated or Sedated No (0 pts) Impaired Gait No (0 pts) Mobility Assist Device Used Yes (1 pt) Altered Elimination No (0 pt) Score/Fall Risk Level 3 or more points = High Risk Oriented to surroundings, Maintained a safe environment, Educated pt \T\ family on fall prevention, incl call for assistance when getting out of bed. Abuse screen: Denies threats or abuse. Denies injuries from another. Nutritional screening: No deficits noted. Tuberculosis screening: No symptoms or risk factors identified. Assessment: 08:45 General: See triage assessment . hb 09:34 Reassessment: Patient appears in no apparent distress at this time. Patient and/or hb family updated on plan of care and expected duration. Pain level reassessed. Patient is alert, oriented x 3, equal unlabored respirations, skin warm/dry/pink. 11:03 Reassessment: Patient appears in no apparent distress at this time. Patient and/or hb family updated on plan of care and expected duration. Pain level reassessed. Patient is alert, oriented x 3, equal unlabored respirations, skin warm/dry/pink. Vital Signs: 08:30 BP 133 / 71; Pulse 63; Resp 15; Temp 97; Pulse Ox 97% on R/A; Weight 83.01 kg; Height 5 hb ft. 9 in. ; Pain 0/10; 09:34 BP 115 / 62; Pulse 57; Resp 16; Pulse Ox 99% on R/A; hb 08:30 Body Mass Index 27.02 (83.01 kg, 175.26 cm) hb 08:30 Pain Scale: Adult hb ED Course: 08:20 Patient arrived in ED. cj3 08:21 Gildardo Rodriguez FNP-C is PHCP. dr5 08:21 Marquis Woo MD is Attending Physician. dr5 08:35 EKG done, by ED staff, reviewed by Gildardo HERNANDEZ. hb 08:39 Elzbieta Holloway, GLORIA is Primary Nurse. hb 08:44 Triage completed. hb 08:44 Arm band placed on. hb 08:45 Initial lab(s) drawn, by ED staff, sent to lab. Inserted saline lock: 20 gauge in right hb forearm, using aseptic technique. ,using aseptic technique. by Quique Blood collected. Flushed with 10 mL NS. 08:45 Patient has correct armband on for positive identification. Call light in reach. hb Provided Education on: call light . Client placed on continuous cardiac and pulse oximetry monitoring. NIBP monitoring applied. child monitor on. Pulse ox on. NIBP on. 08:46 CBC with Diff Sent. hb 08:47 Magnesium Sent. hb 08:47 Protime (+inr) Sent. hb 08:47 Ptt, Activated Sent. hb 08:47 Troponin High Sensitivity Sent. hb 08:47 CMP Sent. hb 08:58 CT Head Brain wo Cont In Process Unspecified. EDMS 09:39 Chest Single View XRAY In Process Unspecified. EDMS 10:40 Straight cath inserted, using sterile technique, 14 Fr. Specimen obtained. Returned hb clear yellow urine. Patient tolerated well. 11:26 No provider procedures requiring assistance completed. IV discontinued, intact, hb bleeding controlled, No redness/swelling at site. Pressure dressing applied. Administered Medications: 09:14 Drug: NS 0.9% IV 1000 ml IV at 1000 ml once; to be given as a bolus over 60 minutes hb Route: IV; Rate: 1000 ml; Site: right forearm; Medication: 08:45 VIS not applicable for this client. hb Outcome: 11:03 Discharge ordered by . dr5 11:26 Discharged to home via wheelchair, with significant other, hb 11:26 Condition: stable 11:26 Discharge instructions given to patient, significant other, Instructed on discharge instructions, follow up and referral plans. medication usage, Demonstrated understanding of instructions, follow-up care, medications, 11:27 Patient left the ED. hb Signatures: Dispatcher [employer] EDMS Elzbieta Holloway, RN RN Gildardo Rodriguez, DELANO-C MAINTENANCE HELPER UTILITY ENGINEER-5 Lisa Covarrubias [email or web address]
[2024-10-29 18:07] VITALS: TEMP 97
[2024-10-29 18:09] VITALS: BP 115/62; O2SAT 99
== END 2024-10-29 11:27 | disposition home or self-care (01) ==
LOC: ER 08:15
DX: R55 Syncope and collapse (principal); I10 Essential (primary) hypertension
CPT/HCPCS: 93005; 85025; 81001; 36415; 83735; 85610; 85730; 84484; 80053; 70450; 71045; 51702; 99285; J7030